=== PATIENT | female | born 1950 | race Caucasian/White ===

== ENCOUNTER 2021-08-15 08:14 | Observation (INO) ==
[2021-08-15] MEDS ORDERED: ADENOSINE IV SOLN 3 MG/ML 2 ML VIAL IV ONE (08:28)
[2021-08-15] MEDS ORDERED: ADENOSINE IV SOLN 3 MG/ML 2 ML VIAL IV STA (08:30)
[2021-08-15] MEDS ORDERED: SODIUM CHLORIDE 0.9% 1000ML 1,000 ML IV ONE ×2 (08:30→08:47)
--- NOTE | 2021-08-15 08:34 | Emergency Department Note ---
Impression & Plan SVT (supraventricular tachycardia), Palpitations, Cat bite of left lower leg, Ventricular tachycardia, Acute hypotension ED Provider Note NAME: MARSHA PERRY AGE: 70 SEX: F : 1950 ARRIVES VIA: Walk-In INFORMANT: Patient ED PROVIDER(S): Gurpreet Clayton DO CHIEF COMPLAINT: palpitations HPI: Patient is a 70-year-old female who presents the ER for palpitations. Patient notes that symptoms started after she worked out. She works out every morning for about half hour on the treadmill with weights. After she finished up the treadmill she was feeling fine like she normally does. She went upstairs after going down and felt her heart start racing. Since then she is felt a little lightheaded and has felt her heart racing. She denies any chest pain or shortness of breath. No belly pain nausea vomiting or diarrhea. No dysuria urgency or frequency. No other exacerbating or remitting factors. He states she has never had this before. Patient denies diabetes, hypertension, hyperlipidemia, CAD, history of sudden at a young age, and smoking. Patie nt denies swelling of calves, recent trips, history of immobilization or recent surgery, prior history of DVT, hemoptysis, and history of malignancy. ROS: See above HPI for pertinent positives & negatives. A total of 10 systems reviewed and were otherwise negative. PAST MEDICAL HISTORY:See Below PAST SURGICAL HISTORY:See Below FAMILY HISTORY:See Below SOCIAL HISTORY:See Below HOME MEDICATIONS:See Below ALLERGIES:See Below VITALS:See Below PHYSICAL EXAMINATION: GENERAL: Sitting up in bed, alert, well appearing, well nourished, no distress, non-toxic EYE EXAM: normal conjunctiva. PERRL and EOM's grossly intact. OROPHARYNX: no exudate, no erythema, lips, buccal mucosa, and tongue normal and mucous membranes are moist NECK: supple, no nuchal rigidity, no adenopathy, non-tender LUNGS: Clear to auscultation. Normal chest wall mechanics HEART: no murmurs, S1 normal and S2 normal ABDOMEN: abdomen soft, non-tender, normo-active bowel sounds, no masses, no rebound or guarding. UPPER EXTREMITIES: upper extremities are grossly normal. LOWER EXTREMITIES: No pitting edema. Calves are equal bilateral NEURO EXAM: Normal sensorium, cranial nerves II-XII grossly intact, normal speech, no gross weakness of arms, no gross weakness of legs. MEDICAL DECISION MAKING: Patient is a 70-year-old female who presents ER for above-stated complaint. IV was established blood was obtained. Labs show no significant leukocytosis or anemia. D-dimer was negative. BMP with creatinine at 1.3. LFTs bilirubin was unremarkable. Troponin was negative. TSH and lipase were unremarkable. Covid was negative. She was initially hypotensive in the 80s and was given 6 of adenosine followed by 12 of adenosine. With the 12 of adenosine she broke into a sinus rhythm and had 6 beats of VT just prior to converting into the sinus rhythm. She was in a sinus rhythm for about 30 seconds and then reconverted back into an SVT. At this point we continued with IV fluids to support her blood pressure as it was still in the 80s. We were waiting for this to come back up into the low 100s prior to giving Lopressor and then retrying adenosine. She converted on her own shortly thereafter. She was given 2 L of IV fluids. She still remained in the 80s for over an hour and a half. She eventually came up into the low 100s. She feels completely back to normal but with the hypotens ion following conversion did elect to monitor her over night. Discussed with hospitalist for further evaluation. Triage Nursing notes reviewed. Limited review of prior medical records performed Vital Signs: reviewed and remarkable for tachy Differential diagnosis: Differential diagnoses includes but is not limited to pneumonia, bronchitis, COPD/Asthma exacerbation, pneumothorax, pulmonary embolism, congestive heart failure, acute coronary syndrome ER treatment provided: See below Diagnostics interpreted by me: ECG: SVT rate of 176 Normal axis No PVCs Nonspecific ST wave changes be through V6 as well as the inferior leads Septal Q waves EKG #2 Sinus rhythm rate 81 Normal axis No PVCs QTC 453 T wave inversion in lead V2 Cardiac Monitoring: An order was placed for continuous cardiac monitoring. The monitor shows a rate of 173 with SVT rhythm. Laboratory studies: As stated above and show below. Imaging studies: Portable AP upright 1 view of the chest was unremarkable Consultation(s): Discussed with Sachi from [facility] service Procedures: none Critical Care: I have personally spent 32 minutes of critical care time in the direct management of this patient. This includes bedside care, interpretation of diagnostic studies, and testing, discussion with consultants, patient, and family members, and other required patient management activities. This 32 minutes is in excess of all separately billable procedures. Past Med/Surg History Medical History (Updated 08/15/21 @ 15:08 by Gurpreet Clayton DO) CKD (chronic kidney disease), stage III Family History (Updated 08/15/21 @ 11:37 by Renetta Aguilar PA-C) Father Heart disease Myocardial infarction Mother Heart disease Myocardial infarction Brother Heart disease Myocardial infarction Social History Smoking Status: Never smoker Second Hand Exposure: No; Do You Dip or Chew Tobacco: No; Hx Alcohol Use: No Hx Substance Use: No Preferred Language: Egyptian Communication Ability: Effective Cardiology Technologist Required: No Beliefs That Will Affect Care: None Current Living Situation: Spouse Other Information That Helps Us Care for You: No Feels Safe at Home: Yes Assistive Devices: None Allergies Allergies Allergy/AdvReac Type Severity Reaction Status Date / Time No Known Allergies Allergy Unverified 08/15/21 09:34 Home Meds Home Medications Medication Instructions Recorded Confirmed cyclosporine 0.05 % eye drops in a 1 drp OPB BID 08/15/21 08/15/21 dropperette (Restasis) Results & Data (ED) Vital Signs Vital Signs - 24 hr 08/15/21 08:16 08/15/21 08:27 08/15/21 08:31 Temperature 36.5 C Temperature Source Temporal Artery Scan Pulse Rate 190 H 176 H 172 H Pulse Rate [Apical] 176 H Pulse Rate from SpO2 Sensor Respiratory Rate 20 20 20 Respiratory Effort / Characteristics Non-Labored Non-Labored Spontaneous Respiratory Depth Normal Normal Respiratory Pattern Regular Blood Pressure Blood Pressure Mean Pulse Oximetry 98 95 Oxygen Delivery Method Room Air Room Air Sepsis Recent Fever Within 48 Hours No Sepsis New/Unexplained Change in Mental Status N/A Sepsis Action Taken by Nursing No Action Required 08/15/21 08:38 08/15/21 08:39 08/15/21 08:42 Temperature Temperature Source Pulse Rate 166 H 161 H 159 H Pulse Rate [Apical] Pulse Rate from SpO2 Sensor 166 H 162 H Respiratory Rate 14 19 20 Respiratory Effort / Characteristics Respiratory Depth Respiratory Pattern Blood Pressure 81/65 L 87/61 L 75/48 L Blood Pressure Mean 70 69 57 Pulse Oximetry 99 99 Oxygen Delivery Method Sepsis Recent Fever Within 48 Hours Sepsis New/Unexplained Change in Mental Status Sepsis Action Taken by Nursing 08/15/21 08:43 08/15/21 08:45 08/15/21 08:55 Temperature Temperature Source Pulse Rate 153 H 81 83 Pulse Rate [Apical] Pulse Rate from SpO2 Sensor 155 H 94 H 83 Respiratory Rate 16 20 19 Respiratory Effort / Characteristics Respiratory Depth Respiratory Pattern Blood Pressure 93/63 L 83/55 L 92/70 L Blood Pressure Mean 73 64 77 Pulse Oximetry 97 99 100 Oxygen Delivery Method Sepsis Recent Fever Within 48 Hours Sepsis New/Unexplained Change in Mental Status Sepsis Action Taken by Nursing 08/15/21 09:00 08/15/21 09:15 08/15/21 09:30 Temperature Temperature Source Pulse Rate 89 88 86 Pulse Rate [Apical] Pulse Rate from SpO2 Sensor 89 89 86 Respiratory Rate 20 21 18 Respiratory Effort / Characteristics Respiratory Depth Respiratory Pattern Blood Pressure 96/65 L 90/71 L 100/73 Blood Pressure Mean 75 77 82 Pulse Oximetry 100 99 99 Oxygen Delivery Method Sepsis Recent Fever Within 48 Hours Sepsis New/Unexplained Change in Mental Status Sepsis Action Taken by Nursing Laboratory Data Result diagrams: 08/15/21 08:31 08/15/21 08:31 Lab Results 08/15/21 08/15/21 08/15/21 Range/Units 08:31 08:31 08:31 WBC 7.69 (4.8-10.8) K/uL RBC 4.92 (4.2-5.4) M/uL Hgb 14.6 (12.0-16.0) g/dL Hct 45.0 (37-47) % MCV 91.5 (80-100) fL MCH 29.7 (25-34) pg MCHC 32.4 (32-36) g/dL RDW Std Deviation 43.5 (36.4-46.3) fL RDW Coeff of Gilson 13.1 (11.5-14.5) % Plt Count 263 (130-400) K/uL MPV 10.4 (7.4-10.4) fL Immature Gran % (Auto) 0.1 % Neut % (Auto) 64.3 % Lymph % (Auto) 25.6 % [place] % (Auto) 7.2 % Eos % (Auto) 2.1 % Baso % (Auto) 0.7 % Neut # (Auto) 4.95 (1.4-6.5) K/uL Lymph # (Auto) 1.97 (1.2-3.4) K/uL [place] # (Auto) 0.55 (0.11-0.59) K/uL Eos # (Auto) 0.16 (0-0.5) K/uL Baso # (Auto) 0.05 (0-0.2) K/uL Immature Gran # (Auto) 0.01 (0.00-0.02) K/uL D-Dimer 300 (0-500) ug/L FEU Sodium 139 (136-145) mmol/L Potassium 4.0 (3.5-5.1) mmol/L Chloride 105 (98-107) mmol/L Carbon Dioxide 24 (21-32) mmol/L Anion Gap 10 (3-11) BUN 18 (6-23) mg/dl Creatinine 1.30 H (0.6-1.2) mg/dl Est Cr Clr Drug Dosing 31.8 ml/min Est GFR ( Amer) 48.1 ml/min Est GFR (Non-Af Amer) 41.5 ml/min BUN/Creatinine Ratio 13.8 (10-20) Glucose 171 H (70-99(Fasting)) mg/dl Calcium 9.1 (8.5-10.1) mg/dl Magnesium (1.7-2.4) mg/dl Total Bilirubin 0.6 (0.2-1.0) mg/dl AST 29 (13-39) U/L ALT 20 (7-52) U/L Alkaline Phosphatase 74 (34-104) U/L Troponin I < 0.03 (0-0.04) ng/ml Total Protein 7.1 (6.0-8.3) gm/dl Albumin 4.2 (3.4-5.0) gm/dl Globulin 2.9 (2.5-4.0) gm/dl Albumin/Globulin Ratio 1.4 (0.9-2) Lipase 24 (11-82) U/L TSH (0.300-4.500) uIu/ml 08/15/21 08/15/21 Range/Units 09:25 09:25 WBC (4.8-10.8) K/uL RBC (4.2-5.4) M/uL Hgb (12.0-16.0) g/dL Hct (37-47) % MCV (80-100) fL MCH (25-34) pg MCHC (32-36) g/dL RDW Std Deviation (36.4-46.3) fL RDW Coeff of Gilson (11.5-14.5) % Plt Count (130-400) K/uL MPV (7.4-10.4) fL Immature Gran % (Auto) % Neut % (Auto) % Lymph % (Auto) % [place] % (Auto) % Eos % (Auto) % Baso % (Auto) % Neut # (Auto) (1.4-6.5) K/uL Lymph # (Auto) (1.2-3.4) K/uL [place] # (Auto) (0.11-0.59) K/uL Eos # (Auto) (0-0.5) K/uL Baso # (Auto) (0-0.2) K/uL Immature Gran # (Auto) (0.00-0.02) K/uL D-Dimer (0-500) ug/L FEU Sodium (136-145) mmol/L Potassium (3.5-5.1) mmol/L Chloride (98-107) mmol/L Carbon Dioxide (21-32) mmol/L Anion Gap (3-11) BUN (6-23) mg/dl Creatinine (0.6-1.2) mg/dl Est Cr Clr Drug Dosing ml/min Est GFR ( Amer) ml/min Est GFR (Non-Af Amer) ml/min BUN/Creatinine Ratio (10-20) Glucose (70-99(Fasting)) mg/dl Calcium (8.5-10.1) mg/dl Magnesium 1.7 (1.7-2.4) mg/dl Total Bilirubin (0.2-1.0) mg/dl AST (13-39) U/L ALT (7-52) U/L Alkaline Phosphatase (34-104) U/L Troponin I (0-0.04) ng/ml Total Protein (6.0-8.3) gm/dl Albumin (3.4-5.0) gm/dl Globulin (2.5-4.0) gm/dl Albumin/Globulin Ratio (0.9-2) Lipase (11-82) U/L TSH 1.936 (0.300-4.500) uIu/ml Administered Medications Discontinued Medications Adenosine (Adenosine Iv Soln 3 Mg/Ml 2 Ml Vial) Confirm Administered Dose 18 mg IV .STK-MED ONE Stop: 08/15/21 08:29 Last Admin: 08/15/21 08:45 Dose: 12 mg Documented by: [id number] Adenosine (Adenosine Iv Soln 3 Mg/Ml 2 Ml Vial) 6 mg IV NOW STA Stop: 08/15/21 08:31 Last Admin: 08/15/21 08:37 Dose: 6 mg Documented by: [id number] Amoxicillin/Clavulanate Potassium (Amoxicillin/Clavulanate 875 Mg Tab) 1 tab PO NOW ONE Stop: 08/15/21 10:37 Last Admin: 08/15/21 11:12 Dose: 1 tab Documented by: [id number] Sodium Chloride (Nss 1000ml) 1,000 mls @ 999 mls/hr IV .Q1H1M ONE Stop: 08/15/21 09:30 Last Infusion: 08/15/21 09:44 Dose: 0 mls/hr Documented by: [id number] Admin: 08/15/21 09:06 Dose: 999 mls/hr Documented by: [id number] Sodium Chloride (Nss 1000ml) 1,000 mls @ 999 mls/hr IV .Q1H1M ONE Stop: 08/15/21 09:47 Last Infusion: 08/15/21 09:44 Dose: 0 mls/hr Documented by: [id number] Admin: 08/15/21 09:06 Dose: 999 mls/hr Documented by: [id number] Metoprolol Tartrate (Metoprolol Tartrate 1 Mg/Ml Vial) 5 mg IV NOW STA; Protocol Stop: 08/15/21 08:48 Last Admin: 08/15/21 09:43 Dose: Not Given Documented by: [id number] Imaging Data Radiologist's Impression: Chest X-Ray 08/15/21 08:22 XR chest 1V portable CLINICAL HISTORY: Atypical chest pain TECHNIQUE: Single frontal radiograph of the chest was obtained. Comparison: None available at the time of this dictation. FINDINGS: No lines and tubes are seen. The cardiomediastinal silhouette is normal. The lungs are clear. No evidence of pleural effusion or pneumothorax. IMPRESSION: No acute chest disease. ACT 112: Negative or not required by law. Electronically signed by: Timoteo Mark M.D. 08/15/2021 8:56 AM Discharge Plan Visit Data Chief Complaint: Tachycardia Stated Complaint: HIGH HEART RATE ED Provider: Gurpreet Clayton Discharge Problem: SVT (supraventricular tachycardia), Palpitations, Cat bite of left lower leg, Ventricular tachycardia, Acute hypotension Patient Disposition: Admitted As Inpatient Discharge Instructions Interventions: ED Discharge Assessment Last Done: 08/15/21 13:58
[2021-08-15 08:38] LABS: Basophils # (auto) 0.05 K/uL (0-0.2); Basophils % (auto) 0.7 %; Eosinophils # (auto) 0.16 K/uL (0-0.5); Eosinophils % (auto) 2.1 %; Hemoglobin 14.6 g/dL (12.0-16.0); Immature Granulocytes # (auto) 0.01 K/uL (0.00-0.02); Immature Granulocytes % (auto) 0.1 %; Lymphocytes # (auto) 1.97 K/uL (1.2-3.4); Lymphocytes % (auto) 25.6 %; Mean Corpuscular Hemoglobin 29.7 pg (25-34); Mean Corpuscular Hgb Conc 32.4 g/dL (32-36); Mean Corpuscular Volume 91.5 fL (80-100); Mean Platelet Volume 10.4 fL (7.4-10.4); Monocytes # (auto) 0.55 K/uL (0.11-0.59); Monocytes % (auto) 7.2 %; Neutrophils # (auto) 4.95 K/uL (1.4-6.5); Neutrophils % (auto) 64.3 %; Platelet Count 263 K/uL (130-400); RDW Coefficient of Variation 13.1 % (11.5-14.5); RDW Standard Deviation 43.5 fL (36.4-46.3); Red Blood Count 4.92 M/uL (4.2-5.4); White Blood Count 7.69 K/uL (4.8-10.8)
[2021-08-15] MEDS ORDERED: METOPROLOL TARTRATE 1 MG/ML VIAL IV STA (08:47)
--- NOTE | 2021-08-15 08:58 | XRay Report ---
XR chest 1V portable CLINICAL HISTORY: Atypical chest pain TECHNIQUE: Single frontal radiograph of the chest was obtained. Comparison: None available at the time of this dictation. FINDINGS: No lines and tubes are seen. The cardiomediastinal silhouette is normal. The lungs are clear. No evid ence of pleural effusion or pneumothorax. IMPRESSION: No acute chest disease. ACT 112: Negative or not required by law. Electronically signed by: Timoteo Mark M.D. 08/15/2021 8:56 AM
[2021-08-15 09:04] LABS: Troponin I < 0.03 ng/ml (0-0.04)
[2021-08-15 09:08] LABS: Alanine Aminotransferase 20 U/L (7-52); Albumin Globulin Ratio 1.4 (0.9-2); Albumin Level 4.2 gm/dl (3.4-5.0); Alkaline Phosphatase 74 U/L (34-104); Anion Gap 10 (3-11); Aspartate Aminotransferase 29 U/L (13-39); BUN Creatinine Ratio 13.8 (10-20); Bilirubin,Total 0.6 mg/dl (0.2-1.0); Blood Urea Nitrogen 18 mg/dl (6-23); Calcium 9.1 mg/dl (8.5-10.1); Carbon Dioxide 24 mmol/L (21-32); Chloride 105 mmol/L (98-107); Creatinine Clr Calc Pharmacy 31.8 ml/min; Est GFR (African American) 48.1 ml/min; Est GFR (Non-African American) 41.5 ml/min; Globulin 2.9 gm/dl (2.5-4.0); Glucose 171 mg/dl (70-99(Fasting)); Lipase 24 U/L (11-82); Sodium 139 mmol/L (136-145); Total Protein 7.1 gm/dl (6.0-8.3)
[2021-08-15 09:59] LABS: D Dimer 300 ug/L FEU (0-500)
[2021-08-15] MEDS ORDERED: AMOXICILLIN/CLAVULANATE 875 MG TAB PO ONE (10:36)
--- NOTE | 2021-08-15 11:03 | History & Physical Report ---
Date of Service August 15, 2021 Assessment & Plan (1) SVT (supraventricular tachycardia): (2) Palpitations: (3) Hypotension: Plan: - Admit to PCU - Pt is s/p adenosine 6 mg and 18 mg IV push, this did not convert the patient into NSR however converted spontaneously shortly thereafter, she has been hypotensive with a BP of over 70s at best here in the so was administered NSS x 2L - Consult cardiology - 2D echo ordered - monitor Hypotension, encourage oral hydration - Pt is not on any medications at baseline - Has never had heart palpitations or arrhythmia like this in the past - Initial troponin was negative, trend x 2 more sets (4) CKD (chronic kidney disease), stage III: Plan: - hx of such, stable. Cr. 1.3 on arrival (5) Cat bite of left lower leg: Plan: - occurred yesterday by a stray, she denies any known history of rabies of the animal. There is bite wounds over the lateral left lower leg, no surrounding erythema or appearance of cellulitis. The wound is not purulent. Patient has been putting Neosporin on it. - no wbc, afebrile -monitor and treat with Augmentin for now. DVT ppx: - teds, scds, ambulatory CODE: Full code Dispo: From home, likely to remain in the hospital x 1-2 days History of Present Illness Chief Complaint: Tachycardia Primary Care Provider: Courtney Paz DO This is a 70 yo F without significant PMHx other than CKD stage III, no surgical history, and not on any medications, who presents with acute onset of tachycardia after she completed a workout on the treadmill. She typically walks daily on the treadmill going at least 1.25 miles and holding weights while on a slight incline. 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 Her is present with her bedside. She notes that after getting off the treadmill she could not even count how fast her pulse was, as she was on the phone with a nurse from [facility]. They suggested that she come to the ER because she had associated lightheadedness, dizziness whenever she attempted to stand up and do anything. She denies caffine consumption other than 1 cup per day but did not have any yet today. Pt does not normally eat breakfast but does drink adequate amounts of water. Yesterday she sustained a cat bite on the left lower leg by a stray cat that she was feeding outside there [place] at home. She denies any irregular-like behavior of the animal, and does not think that it currently has rabies. She also recently had a pet last February which she is still very sad about. Once here in the ER she was given 2 doses of adenosine 6 mg then 18, however ER physician reports that it did not convert at that point. Shortly after this time her heart rate converted spontaneously back into NSR. She does not take any medications at baseline. Her is with her at bedside and supports the history. Allergies Allergy/AdvReac Type Severity Reaction Status Date / Time No Known Allergies Allergy Unverified 08/15/21 09:34 Home Medications Medication Instructions Recorded Confirmed Type cyclosporine 0.05 % eye drops in a 1 drp OPB BID 08/15/21 08/15/21 History dropperette (Restasis) Past Med/Surg History Medical History (Updated 08/15/21 @ 11:36 by Renetta Aguilar PA-C) CKD (chronic kidney disease), stage III Family History (Updated 08/15/21 @ 11:37 by Renetta Aguilar PA-C) Father Heart disease Myocardial infarction Mother Heart disease Myocardial infarction Brother Heart disease Myocardial infarction Social History Smoking Status: Never smoker Preferred Language: Congolese Review of Systems Review of Systems: Constitutional: No fever, sweats or chills Eyes: No diplopia, no worsening or blurred vision ENT: normal hearing, no trouble swallowing Respiratory: No cough, sputum, dyspnea at rest or on exertion Cardiovascular:As per HPI, No chest pain, tightness or palpitations Abdomen: No pain, nausea, vomiting, diarrhea or constipation Musculoskeletal: No joint pain, calf pain, swelling Neurologic: No weakness, numbness/tingling, or balance problems Psychiatric: No anxiety or depression Skin: No rash or itch Physical Exam Physical Exam: General: awake, alert, no apparent distress, physically fit Head: Normocephalic, atraumatic ENT: PERRL, EOMI, no pharyngeal exudate, mucous membranes moist Chest: Clear to auscultation, on room air, no adventitious breath sounds Cardiac: Regular rate and rhythm, no murmur, no JVD, normal peripheral pulses, good capillary refill Abdominal: NABS x 4 quadrants, soft, nondistended, nontender to palpation, no rebound or guarding Extremities: Lateral LLE with bite wounds, blackened area without surrounding erythema, no purulent material draining from the area. Otherwise normal inspe ction, no peripheral edema or erythema, calfs nontender to palpation Psych: Normal mood and affect Neuro: AAO x 3, strength intact bilaterally and rated 5/5, no motor deficits, speech is clear, no peripheral sensory deficits Results & Data Results & Data ([facility]) Vital Signs (Past 12 Hours) Vital Signs Temp Pulse Pulse Resp BP Pulse Ox 08/15/21 09:30 86 18 100/73 99 08/15/21 09:15 88 21 90/71 L 99 08/15/21 09:00 89 20 96/65 L 100 08/15/21 08:55 83 19 92/70 L 100 08/15/21 08:45 81 20 83/55 L 99 08/15/21 08:43 153 H 16 93/63 L 97 08/15/21 08:42 159 H 20 75/48 L 08/15/21 08:39 161 H 19 87/61 L 99 08/15/21 08:38 166 H 14 81/65 L 99 08/15/21 08:31 172 H 20 08/15/21 08:27 176 H 176 H 20 95 08/15/21 08:16 36.5 C 190 H 20 98 Laboratory Results 08/15/21 08/15/21 08/15/21 09:25 08:31 08:31 WBC RBC Hgb Hct MCV MCH MCHC RDW Std Deviation RDW Coeff of Gilson Plt Count MPV Immature Gran % (Auto) Neut % (Auto) Lymph % (Auto) Hale % (Auto) Eos % (Auto) Baso % (Auto) Neut # (Auto) Lymph # (Auto) Hale # (Auto) Eos # (Auto) Baso # (Auto) Immature Gran # (Auto) D-Dimer 300 Sodium 139 Potassium 4.0 Chloride 105 Carbon Dioxide 24 Anion Gap 10 BUN 18 Creatinine 1.30 H Est Cr Clr Drug Dosing 31.8 Est GFR ( Amer) 48.1 Est GFR (Non-Af Amer) 41.5 BUN/Creatinine Ratio 13.8 Glucose 171 H Calcium 9.1 Magnesium 1.7 Total Bilirubin 0.6 AST 29 ALT 20 Alkaline Phosphatase 74 Troponin I < 0.03 Total Protein 7.1 Albumin 4.2 Globulin 2.9 Albumin/Globulin Ratio 1.4 Lipase 24 08/15/21 08:31 WBC 7.69 RBC 4.92 Hgb 14.6 Hct 45.0 MCV 91.5 MCH 29.7 MCHC 32.4 RDW Std Deviation 43.5 RDW Coeff of Gilson 13.1 Plt Count 263 MPV 10.4 Immature Gran % (Auto) 0.1 Neut % (Auto) 64.3 Lymph % (Auto) 25.6 Hale % (Auto) 7.2 Eos % (Auto) 2.1 Baso % (Auto) 0.7 Neut # (Auto) 4.95 Lymph # (Auto) 1.97 Hale # (Auto) 0.55 Eos # (Auto) 0.16 Baso # (Auto) 0.05 Immature Gran # (Auto) 0.01 D-Dimer Sodium Potassium Chloride Carbon Dioxide Anion Gap BUN Creatinine Est Cr Clr Drug Dosing Est GFR ( Amer) Est GFR (Non-Af Amer) BUN/Creatinine Ratio Glucose Calcium Magnesium Total Bilirubin AST ALT Alkaline Phosphatase Troponin I Total Protein Albumin Globulin Albumin/Globulin Ratio Lipase Diagnostic Findings Chest X-Ray 08/15/21 08:22 XR chest 1V portable CLINICAL HISTORY: Atypical chest pain TECHNIQUE: Single frontal radiograph of the chest was obtained. Comparison: None available at the time of this dictation. FINDINGS: No lines and tubes are seen. The cardiomediastinal silhouette is normal. The lungs are clear. No evidence of pleural effusion or pneumothorax. IMPRESSION: No acute chest disease. ACT 112: Negative or not required by law. Electronically signed by: Timoteo Mark M.D. 08/15/2021 8:56 AM ECG Additional Comments: 15-AUG-2021 08:50:30 [facility]-EDSTAT ROUTINE RETRIEVAL Normal sinus rhythm Septal infarct (cited on or before 15-AUG-2021) Abnormal ECG When compared with ECG of 15-AUG-2021 08:40, (unconfirmed) Vent. rate has decreased BY 80 BPM 25mm/s10mm/[id number] 241CID: [id number] by: REFERRED SELF Unconfirmed Vent. rate 81 BPM WI interval 156 ms QRS duration 68 ms QT/QTc 390/453 ms Code Status & VTE Plan Code Status Full code Supervising Physician Co-Signing Physician Notes I saw this patient with the physician corporate legal assistant, I participated in the history, physical, review of systems, and physical exam. I reviewed the medications with the patient and the physician corporate legal assistant and helped reconcile the medications. I helped take a detailed family and social history as well. I formulated the assessment and plan personally with the physician corporate legal assistant and went over it with the patient. Physical Exam Gen-AAO x 3, NAD, Afebrile Head-NCAT, EOMI, PERRLA, Anicteric Sclera, No Posterior Pharyngeal Erythema Neck-Supple, No JVD, No Thyromegaly, No Masses, No LAD, No Bruits Lungs-Clear to Auscultation Bilaterally, No Rales, No Rhonchi, No Wheezing, No Crepitus Chest-No S4, +S1, +S2, No S3, No Murmurs, No Rubs, No Gallops, No Ectopy Abdomen-Soft, Bowel Sounds Present, Non Tender, Non Distended, No Hepatomegaly, No Splenomegaly, No Palpable Masses, No Rebound, No Rigidity, No Guarding Musculoskeletal-Full Range of Motion Bilaterally, No CVAT Extremities-No Cyanosis, No Clubbing, No Edema Nuero-Cranial Nerves II-XII grossly intact, Motor WNL, DTRs WNL, Strength WNL, Non Focal Psych-Normal Mood
[2021-08-15] MEDS ORDERED: ONDANSETRON INJ 2 MG/ML 2 ML VIAL IV PRN (15:17)
[2021-08-15] MEDS ORDERED: ACETAMINOPHEN 325 MG TAB PO PRN (15:17)
--- NOTE | 2021-08-15 15:27 | Electrocardiogram Report ---
Test Reason : Blood Pressure : / mmHG Vent. Rate : 081 BPM Atrial Rate : 081 BPM P-R Int : 156 ms QRS Dur : 068 ms QT Int : 390 ms P-R-T Axes : 021 018 039 degrees QTc Int : 453 ms Normal sinus rhythm Possible Old Septal infarct (cited on or before 15-AUG-2021) Abnormal ECG When compared with ECG of 15-AUG-2021 08:40, Vent. rate has decreased BY 80 BPM Supraventricular tachycardia no longer present Confirmed by Catracho Beaulieu ([id number]) on 08/15/2021 3:27:01 PM Referred By: REFERRED SELF Confirmed By:Catracho Beaulieu
--- NOTE | 2021-08-15 15:50 | Electrocardiogram Report ---
Test Reason : Blood Pressure : / mmHG Vent. Rate : 176 BPM Atrial Rate : 178 BPM P-R Int : 000 ms QRS Dur : 086 ms QT Int : 254 ms P-R-T Axes : 000 008 045 degrees QTc Int : 434 ms Supraventricular tachycardia Cannot rule out Old Septal infarct Abnormal ECG No previous ECGs available Confirmed by Catracho Beaulieu ([id number]) on 08/15/2021 3:49:55 PM Referred By: REFERRED SELF Confirmed By:Catracho Beaulieu
--- NOTE | 2021-08-15 15:51 | Electrocardiogram Report ---
Test Reason : Blood Pressure : / mmHG Vent. Rate : 161 BPM Atrial Rate : 208 BPM P-R Int : 000 ms QRS Dur : 084 ms QT Int : 288 ms P-R-T Axes : 000 030 051 degrees QTc Int : 471 ms Poor data quality, interpretation may be adversely affected Supraventricular tachycardia Cannot rule out Old Septal infarct Abnormal ECG When compared with ECG of 15-AUG-2021 08:27, No significant change was found Confirmed by Catracho Beaulieu ([id number]) on 08/15/2021 3:50:45 PM Referred By: REFERRED SELF Confirmed By:Catrcaho Beaulieu
[2021-08-15] MEDS: AMOXICILLIN/CLAVULANATE 875 MG TAB PO SCH (17:35)
[2021-08-16 06:31] LABS: Hemoglobin 13.2 g/dL (12.0-16.0); Mean Corpuscular Hemoglobin 30.1 pg (25-34); Mean Corpuscular Volume 91.3 fL (80-100); Mean Platelet Volume 10.2 fL (7.4-10.4); Platelet Count 209 K/uL (130-400); RDW Coefficient of Variation 13.1 % (11.5-14.5); RDW Standard Deviation 44.1 fL (36.4-46.3); Red Blood Count 4.38 M/uL (4.2-5.4); White Blood Count 4.96 K/uL (4.8-10.8)
[2021-08-16 06:49] LABS: Albumin Globulin Ratio 1.7 (0.9-2); Albumin Level 3.7 gm/dl (3.4-5.0); BUN Creatinine Ratio 20.8 (10-20); Bilirubin,Total 0.6 mg/dl (0.2-1.0); Calcium 9.3 mg/dl (8.5-10.1); Est GFR (African American) 65.3 ml/min; Est GFR (Non-African American) 56.4 ml/min; Globulin 2.2 gm/dl (2.5-4.0); Magnesium 1.8 mg/dl (1.7-2.4); Phosphorus 2.9 mg/dl (2.5-4.9); Potassium 3.9 mmol/L (3.5-5.1); Total Protein 5.9 gm/dl (6.0-8.3)
[2021-08-16] MEDS: AMOXICILLIN/CLAVULANATE 875 MG TAB PO SCH (08:01)
--- NOTE | 2021-08-16 10:15 | Cardiology Consultation ---
Date of Consultation August 16, 2021 Assessment & Plan (1) SVT (supraventricular tachycardia): (2) Palpitations: (3) Hypomagnesemia: (4) Hypotension: (5) Cat bite of left lower leg: (6) Elevated troponin: Patient admitted with episode of tachypalpitations. EKG consistent with SVT vs atrial flutter 2:1 conduction. She converted after 2 doses of adenosine - 6 mg and then 18 mg dose. After conversion she became hypotensive, but improved with IV fluids. Troponin minimally elevated likely due to sustained tachyarrhythmia. Normal LV function and no wall motion abnormalities noted on echo. No chest pain to suggest angina. She does have strong family history of premature CAD. Recommend hydration, supplement magnesium. Recommend initiation of ASA 81 mg daily Outpatient stress echo to be arranged given minimally elevated troponin and family history of premature CAD. EP referral also to be arranged as outpatient. Will avoid beta blockers for now given mildly low resting HR in the 50's currently on telemetry. Case discussed with Dr. Carballo. Likely stable for discharge today. Supervising Physician Co-Signing Physician Notes I have discussed the case with Ms. Santos and reviewed the medical record. Unfortunately the patient was discharged and left the hospital before I could see her however, I agree with the plan as outlined above. She will have an outpatient stress test and be followed by the EP service. History of Present Illness Reason for Consultation: SVT vs Atrial flutter Requesting Physician: Ms. Lauren PA-C Attending Physician: Dr. Carballo History of Present Illness Patient is a 70-year-old female who was admitted to [facility] with complaints of sustained palpitations at home lasting approximately 30 minutes. Upon arrival she was found to have tachycardia consistent with SVT vs atrial flutter at a rate of 176 bpm. She was treated with Adenosine 6 mg dose without success. Repeat adenosine dose of 18 mg initially not effective, but apparently patient converted to NSR several minutes later. She then developed symptomatic hypotension, treated with Normal Saline. Troponin minimally elevated at 0.16 and 0.14. She denied chest pain throughout episode of palpitations or tachypalpitations. Her primary complaints were dizziness and SOB. She was found to have mildly elevated creatinine, likely volume deletion. She had been exercising at home on the treadmill, prior to this occurring. She exercises regularly and had no symptoms during exercise to suggest a problem/concern. She denies recent chest pain/dyspnea or palpitations. She is very active. She denies history of cardiovascular issues. She had an echo in 2019 which demonstrated normal LV function without significant findings. She denies history of arrhythmias, valvular disease, CHF, CAD. She takes no medications/supplements on a regular basis. She does report family history of premature CAD with her brother passing away age 58 of [place] and father passing away in his 60's of [place]. She also reports they smoked and "did not take care of themselves". Currently at time of consult, patient resting in bed comfortably. No recurrent palpitations or tachypalpitations. No arrhythmias on telemetry. No chest pain or dyspnea. Wishes to go home. Allergies Allergy/AdvReac Type Severity Reaction Status Date / Time No Known Allergies Allergy Unverified 08/15/21 09:34 Home Medications Medication Instructions Recorded Confirmed Type cyclosporine 0.05 % eye drops in a 1 drp OPB BID 08/15/21 08/15/21 History dropperette (Restasis) amoxicillin 875 mg-potassium 1 tab PO BID 7 Days #14 tab 08/16/21 Rx clavulanate 125 mg tablet aspirin 81 mg tablet,delayed 81 mg PO QAM 30 Days #30 tab 08/16/21 Rx release magnesium oxide 400 mg (241.3 mg 400 mg PO QAM #30 tab 08/16/21 Rx magnesium) tablet Patient History Medical History (Updated 08/16/21 @ 11:37 by Judie Santos PA-C) CKD (chronic kidney disease), stage III Family History (Updated 08/15/21 @ 11:37 by Renetta Aguilar PA-C) Father Heart disease Myocardial infarction Mother Heart disease Myocardial infarction Brother Heart disease Myocardial infarction Social History Smoking Status: Never smoker Second Hand Exposure: No; Do You Dip or Chew Tobacco: No; Hx Alcohol Use: No Hx Substance Use: No Preferred Language: Kazakh Communication Ability: Effective Microbiology Lab Analyst Required: No Beliefs That Will Affect Care: None marital status: Current Living Situation: Spouse How many Children do You have: 1 Other Information That Helps Us Care for You: No Feels Safe at Home: Yes Assistive Devices: Glasses Review of Systems Review of Systems: All systems reviewed & are unremarkable except as noted in HPI & below Physical Exam Constitutional: WD/WN, vitals as above well developed; no acute distress Eyes: PERRL, conjunctivae normal, anicteric sclerae Neck: trachea midline, no thyromegaly Respiratory: normal respiratory effort, lungs clear to auscultation Cardiovascular: Rate/Rhythm: regular rate and regular rhythm Heart Sounds: normal S1 and normal S2; no murmur Vessels: no JVD Extremities: no edema Gastrointestinal (Abdomen): normal bowel sounds, soft, nontender, no hepatosplenomegaly Skin: no rashes Trauma: + evidence of skin trauma (cat/bite puncture wounds - left pretibial region. no signifiant erythema. ) Neurologic: PERRL, EOMI, accommodation nl, no face palsy, no dysarthria Psychiatric: A+Ox3, euthymic affect Results & Data ([facility]) Vital Signs (Past 12 Hours) Vital Signs Temp Pulse Pulse Resp BP Pulse Ox 08/16/21 08:00 36.5 C 76 20 122/63 95 08/16/21 03:11 36.5 C 59 L 18 100/65 97 08/15/21 23:23 36.6 C 57 L 18 103/67 97 08/15/21 23:21 63 Laboratory Results 08/16/21 08/16/21 08/15/21 Range/Units 05:52 05:52 22:31 WBC 4.96 (4.8-10.8) K/uL RBC 4.38 (4.2-5.4) M/uL Hgb 13.2 (12.0-16.0) g/dL Hct 40.0 (37-47) % MCV 91.3 (80-100) fL MCH 30.1 (25-34) pg MCHC 33.0 (32-36) g/dL RDW Std Deviation 44.1 (36.4-46.3) fL RDW Coeff of Gilson 13.1 (11.5-14.5) % Plt Count 209 (130-400) K/uL MPV 10.2 (7.4-10.4) fL Sodium 139 (136-145) mmol/L Potassium 3.9 (3.5-5.1) mmol/L Chloride 108 H (98-107) mmol/L Carbon Dioxide 26 (21-32) mmol/L Anion Gap 5 (3-11) BUN 21 (6-23) mg/dl Creatinine 1.01 (0.6-1.2) mg/dl Est Cr Clr Drug Dosing 41.0 ml/min Est GFR ( Amer) 65.3 ml/min Est GFR (Non-Af Amer) 56.4 ml/min BUN/Creatinine Ratio 20.8 H (10-20) Glucose 81 (70-99(Fasting)) mg/dl Calcium 9.3 (8.5-10.1) mg/dl Phosphorus 2.9 (2.5-4.9) mg/dl Magnesium 1.8 (1.7-2.4) mg/dl Total Bilirubin 0.6 (0.2-1.0) mg/dl AST 21 (13-39) U/L ALT 15 (7-52) U/L Alkaline Phosphatase 62 (34-104) U/L Troponin I 0.14 H* (0-0.04) ng/ml Total Protein 5.9 L (6.0-8.3) gm/dl Albumin 3.7 (3.4-5.0) gm/dl Globulin 2.2 L (2.5-4.0) gm/dl Albumin/Globulin Ratio 1.7 (0.9-2) TSH (0.300-4.500) uIu/ml SARS-CoV-2, RNA, NAAT (NEGATIVE) 08/15/21 08/15/21 08/15/21 Range/Units 14:33 11:49 09:25 WBC (4.8-10.8) K/uL RBC (4.2-5.4) M/uL Hgb (12.0-16.0) g/dL Hct (37-47) % MCV (80-100) fL MCH (25-34) pg MCHC (32-36) g/dL RDW Std Deviation (36.4-46.3) fL RDW Coeff of Gilson (11.5-14.5) % Plt Count (130-400) K/uL MPV (7.4-10.4) fL Sodium (136-145) mmol/L Potassium (3.5-5.1) mmol/L Chloride (98-107) mmol/L Carbon Dioxide (21-32) mmol/L Anion Gap (3-11) BUN (6-23) mg/dl Creatinine (0.6-1.2) mg/dl Est Cr Clr Drug Dosing ml/min Est GFR ( Amer) ml/min Est GFR (Non-Af Amer) ml/min BUN/Creatinine Ratio (10-20) Glucose (70-99(Fasting)) mg/dl Calcium (8.5-10.1) mg/dl Phosphorus (2.5-4.9) mg/dl Magnesium (1.7-2.4) mg/dl Total Bilirubin (0.2-1.0) mg/dl AST (13-39) U/L ALT (7-52) U/L Alkaline Phosphatase (34-104) U/L Troponin I 0.16 H* (0-0.04) ng/ml Total Protein (6.0-8.3) gm/dl Albumin (3.4-5.0) gm/dl Globulin (2.5-4.0) gm/dl Albumin/Globulin Ratio (0.9-2) TSH 1.936 (0.300-4.500) uIu/ml SARS-CoV-2, RNA, NAAT NEGATIVE (NEGATIVE) Diagnostic Findings Telemetry reviewed: Sinus bradycardia, NSR ranging 55-65 bpm since admission. occ PAC, PVC. No arrhythmias EKG on arrival: Supraventricular tachycardia vs atrial flutter at 176 bpm Cannot rule out Old Septal infarct Repeat EKG after 1st dose of adenosine: Supraventricular tachycardia vs atrial flutter at 161 bpm Cannot rule out Old Septal infarct Abnormal ECG When compared with ECG of 15-AUG-2021 08:27, No significant change was found Repeat EKG after 2nd dose of adenosine: Normal sinus rhythm Possible Old Septal infarct (cited on or before 15-AUG-2021) Vent. rate has decreased BY 80 BPM Supraventricular tachycardia no longer present Echo report reviewed dated 08/15/21: Normal LV chamber size and wall thickness. Hyperdynamic LV systolic function ejection fraction greater than 70%. No segmental left ventricular wall motion abnormalities are noted. Grade 1 diastolic dysfunction. Aortic valve sclerosis mild without significant aortic valvular stenosis. Mild AI. Mild MR. Chest xray report reviewed on admission: IMPRESSION: No acute chest disease. prior EKG from outpatient records reviewed - Feb 2020: Normal sinus rhythm Septal infarct , age undetermined Abnormal ECG No previous ECGs available Outpatient echo reviewed from Feb 2020: Interpretation Summary The primary indication after review was deemed appropriate and the examination was performed. Normal LV chamber size and wall thickness. Normal LV systolic function without regional wall motion abnormality. Calculated LV ejection Fraction = 64% (three dimensional volumes). Normal diastolic function. Mild aortic regurgitation. Mild mitral regurgitation. Mild tricuspid regurgitation. The interatrial septum is intact without interatrial shunt, atrial septal defect, or patent foramen ovale. There is no right to left interatrial shunt with Valsalva by saline contrast injection. Medications Administered Current Inpatient Medications Acetaminophen (Acetaminophen 325 Mg Tab) 650 mg PO Q4H PRN PRN Reason: Moderate Pain Stop: 09/14/21 15:16 Amoxicillin/Clavulanate Potassium (Amoxicillin/Clavulanate 875 Mg Tab) 1 tab PO BIDM [facility]; Protocol Stop: 08/22/21 16:59 Last Admin: 08/16/21 08:01 Dose: 1 tab Documented by: Aspirin (Aspirin 81 Mg Ectab) 81 mg PO [facility] Stop: 09/15/21 11:29 Magnesium Oxide (Magnesium Oxide 400 Mg Tab) 400 mg PO [facility] Stop: 09/15/21 11:29 Ondansetron HCl (Ondansetron Inj 2 Mg/Ml 2 Ml Vial) 4 mg IV Q4H PRN PRN Reason: Nausea And Vomiting Stop: 09/14/21 15:16 (1) Cat bite of left lower leg Encounter type: initial encounter Qualified Code(s): S81.852A - Open bite, left lower leg, initial encounter; W55.01XA - Bitten by cat, initial encounter
[2021-08-16] MEDS ORDERED: MAGNESIUM OXIDE 400 MG TAB PO SCH (11:30)
[2021-08-16] MEDS ORDERED: ASPIRIN 81 MG ECTAB PO SCH (11:30)
--- NOTE | 2021-08-16 12:23 | Discharge Summary ---
Date of Service August 16, 2021 Admission HPI Per Admitting Provider This is a 70 yo F without significant PMHx other than CKD stage III, no surgical history, and not on any medications, who presents with acute onset of tachycardia after she completed a workout on the treadmill. She typically walks daily on the treadmill going at least 1.25 miles and holding weights while on a slight incline. 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 Her is present with her bedside. She notes that after getting off the treadmill she could not even count how fast her pulse was, as she was on the phone with a nurse from [facility]. They suggested that she come to the ER because she had associated lightheadedness, dizziness whenever she attempted to stand up and do anything. She denies caffine consumption other than 1 cup per day but did not have any yet today. Pt does not normally eat breakfast but does drink adequate amounts of water. Yesterday she sustained a cat bite on the left lower leg by a stray cat that she was feeding outside there [place] at home. She denies any irregular-like behavior of the animal, and does not think that it currently has rabies. She also recently had a pet last February which she is still very sad about. Once here in the ER she was given 2 doses of adenosine 6 mg then 18, however ER physician reports that it did not convert at that point. Shortly after this time her heart rate converted spontaneously back into NSR. She does not take any medications at baseline. Her is with her at bedside and supports the history. Admission Exam Per Admitting Provider General: awake, alert, no apparent distress, physically fit Head: Normocephalic, atraumatic ENT: PERRL, EOMI, no pharyngeal exudate, mucous membranes moist Chest: Clear to auscultation, on room air, no adventitious breath sounds Cardiac: Regular rate and rhythm, no murmur, no JVD, normal peripheral pulses, good capillary refill Abdominal: NABS x 4 quadrants, soft, nondistended, nontender to palpation, no rebound or guarding Extremities: Lateral LLE with bite wounds, blackened area without surrounding erythema, no purulent material draining from the area. Otherwise normal inspection, no peripheral edema or erythema, calfs nontender to palpation Psych: Normal mood and affect Neuro: AAO x 3, strength intact bilaterally and rated 5/5, no motor deficits, speech is clear, no peripheral sensory deficits Principal Diagnosis (1) SVT (supraventricular tachycardia) (2) Palpitations (3) Hypotension (4) CKD (chronic kidney disease), stage III (5) Cat bite of left lower leg: Discharge Exam General- No acute distress Head- atraumatic Eyes- PERRL, EOMI, ENT- oropharynx clear Neck- supple, no JVD Lungs- clear to auscultation Heart- regular rhythm; no murmur Abdomen- normal bowel sounds, soft, nontender Extremities- no calf tenderness, + evidence of Left leg skin trauma from cat/bite puncture wounds Neuro- alert, oriented x 3; PERRL, EOMI; no facial palsy; no dysarthria Skin- warm & dry Discharge Data Allergies Allergy/AdvReac Type Severity Reaction Status Date / Time No Known Allergies Allergy Unverified 08/15/21 09:34 Consultations 08/15/21 10:23 ED Decision to Admit Stat 08/15/21 15:17 Consult Cardiology Routine Ordered Studies XR chest 1V portable CLINICAL HISTORY: Atypical chest pain TECHNIQUE: Single frontal radiograph of the chest was obtained. Comparison: None available at the time of this dictation. FINDINGS: No lines and tubes are seen. The cardiomediastinal silhouette is normal. The lungs are clear. No evidence of pleural effusion or pneumothorax. IMPRESSION: No acute chest disease. ACT 112: Negative or not required by law. Electronically signed by: Timoteo Mark M.D. 08/15/2021 8:56 AM Dictated:08/15/21855 Transcribed: 08/15/21855 Hospital Course (1) SVT (supraventricular tachycardia): (2) Palpitations: (3) Hypotension: Present on admission with tachycardia associated with dizziness and lightheadedness In the ER adenosine 6 mg and 18 mg IV push given, then later converted spontaneously shortly thereafter After conversion she became hypotensive, but improved with IV fluids. Cardiology on board No plan to start on beta napoleon now due to low HR ECHO showed Normal LV function and no wall motion abnormalities Will need to arrange for outpatient with EP referral Continue Mag supplement Clinically stable Elevated troponin Mostly due to sustained tachyarrhythmia. ECHO showed normal LV function and no wall motion abnormalities Outpatient stress echo to be arranged given minimally elevated troponin and family history of premature CAD. Continue ASA 81 mg (4) CKD (chronic kidney disease), stage III: Hx of such, stable. Cr. 1.3 on arrival Creatinine 1.01 (5) Cat bite of left lower leg: - occurred yesterday by a stray, she denies any known history of rabies of the animal. There is bite wounds over the lateral left lower leg, no surrounding erythema or appearance of cellulitis. The wound is not purulent. Patient has been putting Neosporin on it. - no wbc, afebrile -Continue Augmentin BID DVT ppx: - teds, scds, ambulatory CODE: Full code Disposition Discharge home today Total Time Total Time Spent Total Time Spent (In Minutes): 35 minutes Discharge Plan Discharge Items Patient Disposition: Home - Self-Care Reason For Visit: SVT Discharge Diagnosis: (1) SVT (supraventricular tachycardia) (2) Palpitations (3) Hypotension (4) CKD (chronic kidney disease), stage III (5) Cat bite of left lower leg: Activity: Resume your previous activity Non-emergency contact: Primary Care Provider and Haul Truck Driver Call non-emergency contact if: you have any medication questions, your symptoms worsen and your temperature is above 101 Follow-up/Referrals: Courtney Paz DO [Primary Care Provider] - (Date & Time 08/24/2021 11:10 AM Provider Courtney Paz DO Department [facility] ) Diet: Heart Healthy Addtl Attending Provider Instructions: Follow up with your Primary care provider Dr. Paz on 08/24/2021 @ 11:10 AM at the [facility] Follow up with cardiology to arrange for outpatient stress echo and to evaluate by the electrophysiology cardiology Complete the course of the antibiotic seek medical attention if your symptoms reoccur or develop any fever Pending Studies at Discharge: No Stand-Alone Forms: My Upshot, Smoking Cessation Medications and DC Order Prescriptions: New aspirin 81 mg Tablet,Delayed Release (Dr/Ec) 81 mg PO QAM 30 Days Qty: 30 RF: 0 magnesium oxide 400 mg (241.3 mg magnesium) Tablet 400 mg PO QAM Qty: 30 RF: 0 amoxicillin-pot clavulanate 875-125 mg tablet 1 tab PO BID 7 Days Qty: 14 RF: 0 Continued cyclosporine [Restasis] 0.05 % dropperette 1 p OPB BID RF: 0 Discharge Orders: Discharge Order (Routine); Ordered 08/16/21 Ordered By: Radha Ryan Admission Data Admit Date/Time: 08/15/21 10:38 Attending Provider: Radha Ryan Admit Provider: Miguel Angel Kenney Primary Care Provider: Courtney Paz Other Providers: Miguel Angel Kenney ; Jorge Nam Other Interventions: Discharge Summary Assessment (RN) Last Done: 08/16/21 12:31
== END 2021-08-16 13:19 | disposition home or self-care (01) ==
LOC: EDBD → MERGE 08:14 → ED 08:14 → 2S 10:38 → SUATTDRO 10:38 → INTOOBSV 10:38 → 2S 13:58

== ENCOUNTER 2025-04-25 08:19 | Inpatient (IN) ==
[2025-04-25 08:52] LABS: Hematocrit (blood only) 42.8 % (37.0-47.0); Hemoglobin 14.1 g/dL (12.0-16.0); Immature Granulocytes # (auto) 0.02 K/uL (0.01-0.20); Immature Granulocytes % (auto) 0.2 %; Mean Corpuscular Hemoglobin 29.7 pg (25.0-34.0); Mean Corpuscular Volume 90.1 fL (80.0-100.0); Platelet Count 203 K/uL (130-400); RDW Standard Deviation 41.0 fL (36.4-46.3); Red Blood Count 4.75 M/uL (4.20-5.40); White Blood Count 10.82 K/ul (4.8-10.8)
--- NOTE | 2025-04-25 09:02 | XRay Report ---
SINGLE VIEW CHEST CLINICAL HISTORY: Chest pain FINDINGS: 2 AP, portable, upright chest radiographs compared to to study dated 08/15/2021. The heart is mildly enlarged. The pulmonary vasculature is noncongested. Chronic interstitial thickening is simil ar to previous. There is bibasilar scarring/atelectasis. No airspace consolidation or large pleural e ffusion is identified. No pneumothorax is seen. The skeletal structures are osteopenic. The bony thor ax is grossly intact. IMPRESSION: No acute cardiopulmonary abnormality is identified. ACT 112: Negative or not required by law. Electronically signed by: Mayo Key M.D. 04/25/2025 9:00 AM
--- NOTE | 2025-04-25 09:17 | Emergency Department Note ---
Impression & Plan Elevated troponin, H/O supraventricular tachycardia ED Provider Note NAME: MARSHA PERRY AGE: 74 SEX: F : 1950 ARRIVES VIA: Ambulance INFORMANT: Patient, ED PROVIDER(S): Grace Epps MD CHIEF COMPLAINT: SVT HPI: This is a 74-year-old female presented for possible episode of SVT. Patient states that she think she had an episode of SVT at home. She was on the treadmill when she had an episode of tachycardia. She has had numerous episodes of SVT in the past. Usually he is able to get rid of them in a few minutes. This took about 1 hour. She dunked her head into a ice bucket which finally resolved her symptoms. She reports EMS was called and noted she had a low blood pressure and recommended transfer to the ER. Otherwise patient does state she is having cold-like symptoms over the past 2 days, cough, chills and sore throat. At this time she feels at her baseline. No current chest pain, shortness of breath, leg pain, swelling, back pain. ROS: See above HPI for pertinent positives & negatives. A total of 10 systems reviewed and were otherwise negative. PAST MEDICAL HISTORY: See Below PAST SURGICAL HISTORY: See Below FAMILY HISTORY: See Below SOCIAL HISTORY: See Below HOME MEDICATIONS: See Below ALLERGIES: See Below VITALS: See Below PHYSICAL EXAMINATION: General: resting comfortably in no acute distress Head: Normocephalic and atraumatic Eyes: Normal inspection, extraocular muscles intact Ear, nose, throat: Normal external exam Neck: Normal range of motion Respiratory: lungs clear to auscultation bilaterally Cardiovascular: Regular rate/rhythm, no murmur GI: soft, nontender, no guarding or rebound Extremities: nontender, moves all extremities Neuro: The patient awake and alert, appropriately conversive, no focal deficits, symmetric faces Skin: Warm, dry, and intact MEDICAL DECISION MAKING: This is a 74-year-old female presenting for possible episode of SVT. Patient currently in sinus rhythm. EKG as below. Will do screening workup to assess for electrolytes, troponin, chest x-ray. Patient also having URI type symptoms underlying as possible triggering source of SVT. - Bloodwork is reviewed showing no significant leukocytosis, anemia, electrolyte or creatinine abnormality. - Troponin minimally elevated at 19.8. Likely due to demand from SVT. -Chest Xray independently interpreted by me showing no pneumothorax, focal opacity, or pleural effusions. -Second reports having elevated at 123, uptrending. Patient still asymptomatic however due to increased troponin will require admission for further cardiac workup. - Discussed with hospital service for admission Differential diagnosis: SVT, tachydysrhythmia, PE, electrolyte disturbance, ACS Diagnostics interpreted by me: ECG: ECG independently interpreted by me with normal sinus rhythm, rate of 96, normal UT, normal QRS, normal QTc, no ST segment elevations consistent with STEMI criteria Cardiac Monitoring: An order was placed for continuous cardiac monitoring. The monitor shows a rate of 90 with sinus rhythm. Past Med/Surg History Problem List (Updated 04/25/25 @ 16:55 by Grace Epps MD) H/O supraventricular tachycardia (Acute) Elevated troponin (Acute) Medical History (Updated 04/25/25 @ 16:55 by Grace Epps MD) Elevated troponin Hypomagnesemia Ventricular tachycardia Cat bite of left lower leg CKD (chronic kidney disease), stage III SVT (supraventricular tachycardia) Family History (Updated 08/15/21 @ 11:37 by Renetta Aguilar PA-C) Father Heart disease Myocardial infarction Mother Heart disease Myocardial infarction Brother Heart disease Myocardial infarction Social History Smoking Status: Never smoker Second Hand Exposure: No; Do You Dip or Chew Tobacco: No; Tobacco Cessation Education Requested by Patient: No Hx Alcohol Use: No Hx Substance Use: No Preferred Language: Yakut Communication Ability: Effective Project Safety Manager Required: No Beliefs That Will Affect Care: None marital status: Current Living Situation: Spouse How many Children do You have: 1 Other Information That Helps Us Care for You: No Feels Safe at Home: Yes Safety Concerns: Feels Safe At This Time Assistive Devices: Glasses Allergies Allergies Allergy/AdvReac Type Severity Reaction Status Date / Time No Known Allergies Allergy Unverified 08/15/21 09:34 Home Meds Home Medications Medication Instructions Recorded Confirmed cyclosporine 0.05 % eye drops in a 1 drp OPB BID 08/15/21 04/25/25 dropperette (Restasis) Previous Rx's Medication Instructions Recorded magnesium oxide 400 mg (241.3 mg 400 mg PO QAM #30 tabs 08/16/21 magnesium) tablet Results & Data (ED) Vital Signs Vital Signs - 24 hr 04/25/25 08:10 04/25/25 08:10 04/25/25 08:41 Temperature 36.5 C Temperature Source Oral Pulse Rate 93 H 85 Pulse Rate from SpO2 Sensor Pulse Rhythm Regular Respiratory Rate 19 20 Respiratory Effort / Characteristics Non-Labored Spontaneous Respiratory Depth Normal Blood Pressure 109/75 Blood Pressure Mean 86 Pulse Oximetry 96 97 97 Oxygen Delivery Method Room Air Room Air Room Air Sepsis Recent Fever Within 48 Hours No Sepsis New/Unexplained Change in Mental Status No Sepsis Action Taken by Nursing No Action Required 04/25/25 08:42 04/25/25 10:30 04/25/25 12:00 Temperature Temperature Source Pulse Rate 90 75 85 Pulse Rate from SpO2 Sensor 76 85 Pulse Rhythm Respiratory Rate 20 24 Respiratory Effort / Characteristics Respiratory Depth Blood Pressure 117/78 120/74 Blood Pressure Mean 91 89 Pulse Oximetry 97 99 Oxygen Delivery Method Sepsis Recent Fever Within 48 Hours Sepsis New/Unexplained Change in Mental Status Sepsis Action Taken by Nursing Laboratory Data 04/25/25 08:30 04/25/25 09:30 Lab Results 04/25/25 04/25/25 04/25/25 Range/Units 08:30 09:30 10:36 WBC 10.82 H (4.8-10.8) K/ul RBC 4.75 (4.20-5.40) M/uL Hgb 14.1 (12.0-16.0) g/dL Hct 42.8 (37.0-47.0) % MCV 90.1 (80.0-100.0) fL MCH 29.7 (25.0-34.0) pg MCHC 32.9 (32.0-36.0) g/dL RDW Std Deviation 41.0 (36.4-46.3) fL RDW Coeff of Gilson 12.4 (11.5-14.5) % Plt Count 203 (130-400) K/uL MPV 10.4 (9.4-12.4) fL Immature Gran % (Auto) 0.2 % Neut % (Auto) 82.7 % Lymph % (Auto) 8.8 % [place]upe % (Auto) 6.7 % Eos % (Auto) 1.1 % Baso % (Auto) 0.5 % Neut # (Auto) 8.96 H (1.40-6.50) K/uL Lymph # (Auto) 0.95 L (1.20-3.40) K/uL [place] # (Auto) 0.72 H (0.11-0.59) K/uL Eos # (Auto) 0.12 (0.00-0.50) K/uL Baso # (Auto) 0.05 (0.00-0.20) K/uL Immature Gran # (Auto) 0.02 (0.01-0.20) K/uL Sodium TNP 139 Potassium TNP 4.3 Chloride 105 (98-107) mmol/L Carbon Dioxide 25 (21-32) mmol/L Anion Gap TNP BUN 22 (6-23) mg/dl Creatinine 1.19 (0.6-1.2) mg/dl Est Cr Clr Drug Dosing 38.4 ml/min eGFR 47.98 BUN/Creatinine Ratio 18.5 (10-20) Glucose 111 H (70-99(Fasting)) mg/dl Calcium 9.3 (8.6-10.3) mg/dl Total Bilirubin 0.6 (0.2-1.0) mg/dl AST TNP 26 ALT 17 (7-52) U/L Alkaline Phosphatase 92 (34-104) U/L Troponin I High Sens 19.8 H 123.1 H* D (0-14) pg/ml Total Protein 6.8 (6.0-8.3) gm/dl Albumin 4.2 (3.4-5.0) gm/dl Globulin 2.6 (2.5-4.0) gm/dl Albumin/Globulin Ratio 1.6 (0.9-2) Lipase 20 (11-82) U/L Imaging Data Radiologist's Impression: Chest X-Ray 04/25/25 08:41 SINGLE VIEW CHEST CLINICAL HISTORY: Chest pain FINDINGS: 2 AP, portable, upright chest radiographs compared to to study dated 08/15/2021. The heart is mildly enlarged. The pulmonary vasculature is noncongested. Chronic interstitial thickening is similar to previous. There is bibasilar scarring/atelectasis. No airspace consolidation or large pleural effusion is identified. No pneumothorax is seen. The skeletal structures are osteopenic. The bony thorax is grossly intact. IMPRESSION: No acute cardiopulmonary abnormality is identified. ACT 112: Negative or not required by law. Electronically signed by: Mayo Key M.D. 04/25/2025 9:00 AM Discharge Plan Visit Data Chief Complaint: Cardiac Assessment Stated Complaint: CARDIAC ASSESMENT ED Provider: Grace Epps Discharge Problem: Elevated troponin, H/O supraventricular tachycardia Patient Disposition: Admitted As Inpatient Condition: Fair Discharge Instructions Interventions: ED Discharge Assessment Last Done: 04/25/25 13:34
[2025-04-25 09:22] LABS: Alanine Aminotransferase 17 U/L (7-52); Albumin Globulin Ratio 1.6 (0.9-2); Albumin Level 4.2 gm/dl (3.4-5.0); Alkaline Phosphatase 92 U/L (34-104); Bilirubin,Total 0.6 mg/dl (0.2-1.0); Blood Urea Nitrogen 22 mg/dl (6-23); Calcium 9.3 mg/dl (8.6-10.3); Carbon Dioxide 25 mmol/L (21-32); Chloride 105 mmol/L (98-107); Creatinine Clr Calc Pharmacy 38.4 ml/min; Globulin 2.6 gm/dl (2.5-4.0); Glucose 111 mg/dl (70-99(Fasting)); Lipase 20 U/L (11-82); Total Protein 6.8 gm/dl (6.0-8.3)
[2025-04-25 10:12] LABS: Potassium 4.3 mmol/L (3.5-5.1); Sodium 139.0 mmol/L (136-145)
--- NOTE | 2025-04-25 11:53 | Electrocardiogram Report ---
Test Reason : Blood Pressure : */* mmHG Vent. Rate : 96 BPM Atrial Rate : 96 BPM P-R Int : 132 ms QRS Dur : 68 ms QT Int : 356 ms P-R-T Axes : 9 -5 29 degrees QTcB Int : 449 ms Normal sinus rhythm Normal ECG When compared with ECG of 15-Aug-2021 08:50, Criteria for Septal infarct are no longer Present Confirmed by Phillip Llamas ([id number]) on 04/25/2025 11:52:49 AM Referred By: Confirmed By: Phillip Llamas
[2025-04-25] MEDS ORDERED: POLYETHYLENE (MIRALAX) 17 GM PACK PO PRN (12:11)
[2025-04-25] MEDS ORDERED: ALUMINUM/MAGNESIUM SUSP 30 ML UDC PO PRN (12:11)
[2025-04-25] MEDS ORDERED: MAGNESIUM HYDROXIDE SUSP 30 ML UDC PO PRN (12:11)
[2025-04-25] MEDS ORDERED: ACETAMINOPHEN 325 MG TAB PO PRN (12:11)
[2025-04-25] MEDS ORDERED: NITROGLYCERIN SL 0.4 MG/TAB TAB SL PRN (12:13)
--- NOTE | 2025-04-25 12:26 | History & Physical Report ---
Date of Service April 25, 2025 Assessment & Plan (1) Palpitations: Plan Palpitation Likely supraventricular tachycardia Elevated troponin, rule out ACS Patient comes in with palpitation, see HPI. Pt w/ ho of SVT. Admitting EKG with no acute ST or T changes, admitting troponin uptrending. Patient denies any chest pain and since EKG with no changes, will hold on any anticoagulation. Continue to trend troponin, get echo, telemonitoring. Will get lipid panel and A1c. Cardiology consult. If with frequent SVT, may consider metoprolol. Monitor and replete electrolytes Likely viral URTI: Patient feeling sick for about a day, throat congested and erythematous, patient complains of sore throat. Will get respiratory BioFire. Continue hydration and rest, continue supportive care. Dry eyes: Continue home eyedrops. DVT prophylaxis: Heparin subcu Full code History of Present Illness Chief Complaint: Palpitation Primary Care Provider: Courtney Paz DO 74-year-old lady with PMH of SVT, dry eyes presents to the ED with complaint of palpitation that took 1 hour to recover. Patient called EMS and by the time EMS came in her palpitation has improved but her SBP was in 80s and hence she was referred to the ED. Patient reports that she was admitted for SVT in 2021 and has had multiple SVTs since then which generally resolves with maneuvers she has been taught within 1 to 2-minute but this time it took her about 1 hour, she did laying down/bearing down and finally dunked her face into the ice bucket with helped resolve her symptoms. Patient reports she has been feeling slightly sick since about a day with some sore throat, maybe mild fever, congested nose/face and sneezing. Will get resp biofire. She was on a treadmill and slowly increasing her intensity when she started feeling palpitation. Patient does report some nausea and lightheadedness with the event. patient denies any chest pain or shortness of breath. At bedside exam, patient denies any nausea or vomiting, patient reports no acute changes in her bowel or bladder or appetite. Patient denies smoking/alcohol/illicit drug use. Patient reports taking eyedrops at home, denies any other medications at home. Plan of care discussed with the patient in detail, she was understanding. Full code Allergies Allergy/AdvReac Type Severity Reaction Status Date / Time No Known Allergies Allergy Unverified 08/15/21 09:34 Home Medications Medication Instructions Recorded Confirmed Type cyclosporine 0.05 % eye drops in a 1 drp OPB BID 08/15/21 04/25/25 History dropperette (Restasis) magnesium oxide 400 mg (241.3 mg 400 mg PO QAM #30 tabs 08/16/21 04/25/25 Rx magnesium) tablet Past Med/Surg History Problem List Medical History (Updated 09/16/21 @ 00:09 by Emily Cordova) Elevated troponin Hypomagnesemia Ventricular tachycardia Cat bite of left lower leg CKD (chronic kidney disease), stage III SVT (supraventricular tachycardia) Family History (Updated 08/15/21 @ 11:37 by Renetta Aguilar PA-C) Father Heart disease Myocardial infarction Mother Heart disease Myocardial infarction Brother Heart disease Myocardial infarction Social History Smoking Status: Never smoker Second Hand Exposure: No; Do You Dip or Chew Tobacco: No; Hx Alcohol Use: No Hx Substance Use: No Preferred Language: Haitian Communication Ability: Effective Increment Manager Required: No Beliefs That Will Affect Care: None marital status: Current Living Situation: Spouse How many Children do You have: 1 Feels Safe at Home: Yes Assistive Devices: Glasses Review of Systems Review of Systems: Negative otherwise mentioned in HPI. Physical Exam Physical Exam: GENERAL: Alert and oriented x3. NAD, on RA. HEENT: No pallor, no icterus. Pupils equal, round and reactive to light. Oral mucosa moist. NECK: No JVD, no neck masses. HEART: S1 and S2 heard. Regular rate and rhythm. No murmur, no gallop. RESPIRATORY SYSTEM: Normal AP diameter. No accessory muscle use. No wheezing, no crackles. ABDOMEN: Soft, bowel sounds present, nontender, no distention. CENTRAL NERVOUS SYSTEM: No facial droop. Speech is clear. Obeys simple commands. Moves extremities. EXTREMITIES: No edema, no erythema seen. Results & Data Results & Data Vital Signs (Past 12 Hours) Vital Signs Temp Pulse Resp BP Pulse Ox O2 Del Method 04/25/25 12:00 85 24 120/74 99 04/25/25 10:30 75 20 117/78 97 04/25/25 08:42 90 04/25/25 08:41 85 20 97 Room Air 04/25/25 08:10 97 Room Air 04/25/25 08:10 36.5 C 93 H 19 109/75 96 Room Air
[2025-04-25 14:36] LABS: Chlamydia pneumoniae PCR Not Detected (NotDetected); Coronavirus 229E PCR Not Detected (NotDetected); Coronavirus CoV-2 (COVID19)PCR Not Detected (NotDetected); Coronavirus HKU1 PCR Not Detected (NotDetected); Coronavirus NL63 PCR Not Detected (NotDetected); Coronavirus OC43PCR Not Detected (NotDetected); Human Metapneumovirus PCR Not Detected (NotDetected); Parainfluenza Virus 1 PCR Not Detected (NotDetected); Parainfluenza Virus 2 PCR Not Detected (NotDetected); Parainfluenza Virus 3 PCR Not Detected (NotDetected); Parainfluenza Virus 4 PCR Not Detected (NotDetected); Respiratory Syncytial VirusPCR Not Detected (NotDetected); Rhinovirus/Enterovirus PCR Not Detected (NotDetected)
[2025-04-25 21:59] LABS: Partial Thromboplastin Time 23 Seconds (21-31)
[2025-04-26 06:33] LABS: Hematocrit (blood only) 41.0 % (37.0-47.0); Hemoglobin 14.1 g/dL (12.0-16.0); Mean Corpuscular Hemoglobin 30.4 pg (25.0-34.0); Mean Corpuscular Volume 88.4 fL (80.0-100.0); Platelet Count 217 K/uL (130-400); RDW Standard Deviation 40.9 fL (36.4-46.3); Red Blood Count 4.64 M/uL (4.20-5.40); White Blood Count 6.08 K/ul (4.8-10.8)
[2025-04-26 06:53] LABS: Anion Gap 7.0 (3-11); Blood Urea Nitrogen 23.0 mg/dl (6-23); Calcium 9.8 mg/dl (8.6-10.3); Carbon Dioxide 27.0 mmol/L (21-32); Chloride 105.0 mmol/L (98-107); Creatinine Clr Calc Pharmacy 36.8 ml/min; Glucose 92.0 mg/dl (70-99(Fasting)); Magnesium 2.1 mg/dl (1.7-2.4); Potassium 4.9 mmol/L (3.5-5.1); Sodium 139.0 mmol/L (136-145)
--- NOTE | 2025-04-26 08:42 | Cardiology Consultation ---
Date of Consultation April 26, 2025 Assessment & Plan (1) Palpitations: (2) H/O supraventricular tachycardia: (3) Elevated troponin: (4) Mitral regurgitation: Plan Assessment: 74 year old female admitted for palpitations, similar in sensation to prior SVT event, not alleviated with vagal maneurver. Remote history of SVT 2021. Troponin elevation with peak of 297.3 and trending down. No acute EKG changes. Echocardiogram with preserved LVEF with new moderate to severe MR, not noted on prior studies. Cardiology consulted for further evaluation/recommendations. Plan: 1. Palpitations 2. History of SVT 3. Troponin elevation 4. Mitral regurgitation. -patient with prior SVT event dating back to 2021, not responsive to adenosine, but had spontaneously converted. Stress echocardiogram at that time negative for inducible ischemia, notation of mild AI and mild MR. -patient's palpitations had ceased prior to EMS arrival and she denies any recurrence since time of admission -Review of telemetry shows NSR with no acute events overnight. -Modest troponin elevation with peak of 297.3, in part secondary to tachycardia event; however, echocardiogram now shows moderate to severe MR. -Case was discussed with Dr. Hidalgo. patient will be made NPO with plans for cardiac catheterization (left and right heart cath) for further evaluation of troponin elevation and to assess measurements related to new MR findings. -Nursing staff was contacted via phone. -Dr. Hidalgo to discuss findings with patient and plans to pursue cardiac catheterization. -Patient is not currently on any AV rishi blocking agents. Will await catheterization results prior to any further medication recommendations. -Labs reviewed. Electrolytes stable. Awaiting TSH Case has been discussed with Dr. Hidalgo. Further recommendations regarding plan of care as per his assessment. I spent a total of 50 minutes on the date of service in preparation, delivery, documentation of the care provided to the patient excluding any time spent in the performance of separately billed services. WOODY Reyna [facility] Supervising Physician Co-Signing Physician Notes Patient seen and examined. Past medical history, surgical history, social history and family history have been reviewed. The medical record and all the above studies have been reviewed. Case DW SHEBA including management. 04/25/25 ECHO Interpretation Summary Left ventricular systolic function is normal. Left Ventricular Ejection Fraction = 60-65%. A full diastolic examination was done with clinical findings of Class I diastolic dysfunction. Mild aortic regurgitation. There is moderate to severe mitral regurgitation. There is mild tricuspid regurgitation. Small pericardial effusion. There are no echocardiographic indications of cardiac tamponade. 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 SVT (AVNRT) that presented to the ER with complaints of palpitations lasting approx one hour. She had summoned EMS, upon arrival her palpitations had resolved, but her Systolic blood pressure was noted to be in the 80's. She was seen by Dr. Trinidad ([facility]) dating back to 2021 for a one-time episode of SVT with failed response to Adenosine x 2 doses, but had spontaneously converted. She has not followed with cardiology since. Patient states she has had multiple "brief" episodes over the years that typically resolve with use of vagal maneuvers. patient feels well at time from a cardiac perspective at time of examination. She has had no recurrence of symptoms since time of admission. Of note, patient complains of acute URI symptoms sore throat and congestion. EKG NSR Rate 96bpm, QTC 449ms High sensitivity troponin 19.8/123.1/214.4/297.3/248.7 Echocardiogram pending Review of telemetry demonstrates Sinus Rhythm rates 70-80's. No acute events overnight. Allergies Allergy/AdvReac Type Severity Reaction Status Date / Time No Known Allergies Allergy Unverified 08/15/21 09:34 Home Medications Medication Instructions Recorded Confirmed Type cyclosporine 0.05 % eye drops in a 1 drp OPB BID 08/15/21 04/25/25 History dropperette (Restasis) magnesium oxide 400 mg (241.3 mg 400 mg PO QAM #30 tabs 08/16/21 04/25/25 Rx magnesium) tablet Patient History Medical History (Updated 04/26/25 @ 11:05 by WOODY Reyna) Elevated troponin Hypomagnesemia Ventricular tachycardia Cat bite of left lower leg CKD (chronic kidney disease), stage III SVT (supraventricular tachycardia) Family History (Updated 08/15/21 @ 11:37 by Renetta Aguilar PA-C) Father Heart disease Myocardial infarction Mother Heart disease Myocardial infarction Brother Heart disease Myocardial infarction Social History Smoking Status: Never smoker Second Hand Exposure: No; Do You Dip or Chew Tobacco: No; Tobacco Cessation Education Requested by Patient: No Hx Alcohol Use: No Hx Substance Use: No Preferred Language: Swedish Communication Ability: Effective Adult Education Professional Required: No Beliefs That Will Affect Care: None marital status: Current Living Situation: Spouse How many Children do You have: 1 Other Information That Helps Us Care for You: No Feels Safe at Home: Yes Safety Concerns: Feels Safe At This Time Assistive Devices: Glasses Review of Systems Review of Systems: All systems reviewed & are unremarkable except as noted in HPI & below Physical Exam Constitutional: well developed and well nourished; no acute distress and not ill appearing Neck: normal visual inspection and trachea midline Respiratory: normal respiratory effort, lungs clear to auscultation Cardiovascular: Rate/Rhythm: regular rate and regular rhythm Heart Sounds: normal S1, normal S2 and + murmur (+2/6 systolic ) Vessels: dorsalis pedis pulses present; no JVD Extremities: no edema Skin: no rashes, warm and dry Psychiatric: A+Ox3, euthymic affect Results & Data Vital Signs (Past 12 Hours) Vital Signs Temp Pulse Pulse Resp BP Pulse Ox O2 Del Method 04/26/25 08:08 36.6 C 84 19 122/86 94 Room Air 04/26/25 03:13 36.5 C 65 20 104/71 97 Room Air 04/25/25 23:00 73 04/25/25 23:00 37.0 C 75 20 100/67 95 Room Air Laboratory Results Cardiac Enzymes 04/25/25 04/25/25 04/25/25 Range/Units 10:36 12:30 16:20 Troponin I High Sens 123.1 H* D 214.4 H* D 297.3 H* D (0-14) pg/ml 04/25/25 Range/Units 21:05 Troponin I High Sens 248.7 H* (0-14) pg/ml Coagulation 04/25/25 Range/Units 21:05 APTT 23 (21-31) Seconds Lipids 04/26/25 Range/Units 05:38 Triglycerides 53 (0-150) mg/dl Cholesterol 196 (0-200) mg/dl HDL Cholesterol 69 mg/dl Cholesterol/HDL Ratio 2.8 (0-5) CBC 04/26/25 Range/Units 05:38 WBC 6.08 (4.8-10.8) K/ul RBC 4.64 (4.20-5.40) M/uL Hgb 14.1 (12.0-16.0) g/dL Hct 41.0 (37.0-47.0) % Plt Count 217 (130-400) K/uL Comprehensive Metabolic Panel 04/26/25 Range/Units 05:38 Sodium 139 (136-145) mmol/L Potassium 4.9 (3.5-5.1) mmol/L Chloride 105 (98-107) mmol/L Carbon Dioxide 27 (21-32) mmol/L BUN 23 (6-23) mg/dl Creatinine 1.24 H (0.6-1.2) mg/dl Glucose 92 (70-99(Fasting)) mg/dl Calcium 9.8 (8.6-10.3) mg/dl Intake and Output 04/25/25 04/26/25 04/26/25 22:59 06:59 14:59 Intake Total 300 / 540 Balance 300 / 540 Intake: Oral 300 / 540 Other: # Unmeasured Voids 1 1 Weight 71.4 kg Weight Measurement Method Built in [facility] Diagnostic Findings Echocardiogram 04/26/25 LV systolic function is normal LVEF 60-65% Class I diastolic dysfunction Mild AI Moderate to severe MR Mild TR small pericardial effusion No echocardiographic evidence of cardiac tamponade PG Care Time/CCT Total # of Minutes Spent Total Time Spent with Patient: Total time spent is greater than 50% in coordination of care (as documented) at patient's floor/unit and/or counseling patient: Coding Level of Care Code 99292 IN/OBS CONSULT LVL 5,80M Diagnoses Palpitations R00.2 H/O supraventricular tachycardia Z86.79 Elevated troponin R79.89 Mitral regurgitation I34.0 Time Spent (min) 50
[2025-04-26 08:44] LABS: Hemoglobin A1C 5.1 % (4.5-5.6)
--- NOTE | 2025-04-26 09:30 | XCELERA ---
[id number]
[2025-04-26 09:37] LABS: Thyroid Stimulating Hormone 1.631 uIu/ml (0.300-4.500)
[2025-04-26 09:48] LABS: HDL Cholesterol 69.0 mg/dl; Triglycerides 53.0 mg/dl (0-150)
[2025-04-26 09:56] LABS: Cholesterol 196.0 mg/dl (0-200)
--- NOTE | 2025-04-26 12:22 | Hospitalist Progress Note ---
Date of Service April 26, 2025 Assessment & Plan (1) Palpitations: Plan 74F with PMH SVT who presents with palpitations x 1 hour at home #Palpitations -Likely SVT -TSH normal -Currently in NSR -Cardio following -Troponin elevation likely type II nstemi/demand ischemia from tachycardia -No chest pain or EKG changes -TTE showing new severe mitral regurgitation, small pericardial effusion Plan -For LHC and RHC by cardio -Appreciate cardio input -Continue cardiac monitoring I spent a total of 45 minutes coordinating, documenting, and providing care for this patient excluding time spent in the performance of separately billed services. This included personally reviewing all current laboratories and imaging studies, medical reconciliation, outpatient chart review and discussion with specialists Admission and Anticipated Discharge Date Admission Date: April 25, 2025 Subjective Feeling well this am. Patient denies F/C, CP, palpitations, SOB, dyspnea, abd pain, N/V/D Physical Exam Physical Exam: Vitals and labs reviewed General: Well appearing, NAD HEENT: EOMI, PERRLA Neck: Supple Cardiac: RRR no rubs gallops or murmurs Lungs: CTA no rhonchi wheezing or rales Abd: S NT ND BS positive : Deffered MSK: Full ROM. No obvious deformities Ext: No Edema cyanosis Skin: Warm, Dry Neuro: AOx3 No focal deficits. Psych: Normal Mood Results & Data Results & Data Vital Signs (Past 12 Hours) Vital Signs Temp Pulse Resp BP Pulse Ox O2 Del Method 04/26/25 11:13 36.7 C 68 18 114/78 95 Room Air 04/26/25 08:08 36.6 C 84 19 122/86 94 Room Air 04/26/25 03:13 36.5 C 65 20 104/71 97 Room Air Laboratory Results Abnormal lab results 04/25/25 04/25/25 04/25/25 Range/Units 12:30 16:20 21:05 Creatinine (0.6-1.2) mg/dl Troponin I High Sens 214.4 H* D 297.3 H* D 248.7 H* (0-14) pg/ml 04/26/25 Range/Units 05:38 Creatinine 1.24 H (0.6-1.2) mg/dl Troponin I High Sens (0-14) pg/ml
--- NOTE | 2025-04-26 13:36 | Pre Anesthesia Assessment ---
Date of Service April 26, 2025 Pre Sedation Assessment Vital Signs Temp Pulse Pulse Resp BP Pulse Ox O2 Del Method 04/26/25 13:26 80 16 139/101 H 95 Room Air 04/26/25 11:13 98.1 F 68 18 114/78 95 Room Air 04/26/25 08:08 97.9 F 84 19 122/86 94 Room Air 04/26/25 03:13 97.7 F 65 20 104/71 97 Room Air 04/25/25 23:00 73 04/25/25 23:00 98.6 F 75 20 100/67 95 Room Air 04/25/25 19:49 98.1 F 74 20 103/68 92 Room Air 04/25/25 15:21 98.4 F 81 17 100/67 94 Room Air 04/25/25 14:10 98.1 F 73 16 120/79 93 Room Air Cardiovascular + regular rate Respiratory + respiratory effort normal Pre-Sedation Airway Assessment Smoking Status: Never smoker Hx Sleep Apnea: No Hx Difficult Intubation: No Short, Thick Neck: No Thyromental Distance: < 3.5 Finger Breadths Oral Cavity: + WNL Mallampati Class: II ASA: ASA2E NPO Status Date of Last Intake of Fluids: 04/26/25 Time of Last Intake of Fluids: 08:00 Date of Last Intake of Solid Food: 04/26/25 Time of Last Intake of Solid Foods: 08:00 Procedure Planning Contraindications for Sedation: none Current Medications Reviewed: Yes Notes The planned sedation has been discussed with the patient. Informed Consent was obtained. I have identified the patient, determined the appropriateness of sedation and have assessed the patient immediately prior to the procedure. All medicine(s) and interventions are by my order.
[2025-04-26 14:41] LABS: iSTAT Art Bld Gas Base Excess -1.0 mmol/L (-9-1.8)
--- NOTE | 2025-04-26 14:50 | Cardiac Catheterization ---
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 Cardiac Status Clinical evaluation leading to the procedure CAD Presenation: Non STEMI Diagnostic Physicians Name: Piotr Wilkinson MD Closure Device Recommendations: Medical Therapy and/or Counseling Cardiac Cath Procedure Full Procedure Date April 26, 2025 Pre-Procedure Diagnosis Pre-Procedure Diagnosis: Non STEMI and Valvular Disease AUC Score AUC Score: 7 Post-Procedure Diagnosis Post-Procedure Diagnosis: Mild CAD Procedure(s) Performed Procedure(s) Performed: Coronary Angiography, Left Heart Cath, Right Heart Cath and Ultrasound Guided Vascular Access Grid Inspector Piotr Wilkinson MD Alarm Installer(s) Laura Estimated Blood Loss Estimated Blood Loss: 25 Medication(s) Medication(s): Fentanyl, Heparin, Lidocaine 1%, Nicardipine, Nitroglycerin and Versed Summary of Findings Indication: NSTEMI, mitral regurgitation Access: 6 Fr right antecubital vein, 6 Fr right radial artery, 6 Fr left radial artery Catheters: [place], 6 Fr [place] Procedure: Large bore right antecubital IV was exchanged for 6 Fr sheath. 6 Fr [place] navigated under fluoroscopy into PA 6 Fr sheath placed to right radial artery. Tortuosity/spasm/PAD and radial/brachial artery most notable at the elbow. Unable to pass Glidewire, V18, whisper 0.14 wire across disease/tortuous segment. Under ultrasound guidance 6 Fr sheath placed to left radial artery. Also noted to have some spasm/tortuosity at radial/brachial junction. Eventually able to cross with 0.14 [place] blue wire. 4 Fr catheters navigated to ascending aorta for coronary angiography Findings: LM -normal caliber, no significant disease LAD -proximal vessel medium caliber gives off 2 medium diagonals without significant disease. Latemid/distal LAD very small, tortuous and tapers prior to apex. Circumflex -small caliber, no significant disease. Gives off 2 small OM's without disease. RCA -dominant, large caliber, no significant disease. Right posterior AV branch, PDA without significant disease. RA 1 RV 17/1 PA 19/3 (10) PAWP 5 (no significant V wave) LV 9 PaSat 69% AoSat 97% Bryan CO/CI 4.9/2.8 Thermo CO/CI 3.4/2.0 Arterial Closure: TR band Summary: 1. Angiographically normal coronary arteries 2. Normal left and right sided filling pressures 3. Normal pulmonary artery pressures 4. Normal cardiac output Recommendations: Continued ASCVD risk factor modification Further assessment of mitral regurgitation per Dr. Hidalgo Hemodynamics Rest Ao:: 149/73/106 Final Ao: 147/77/105 LV: 142/9 Recommendations Recommendations: Medical Therapy and/or Counseling Radiation Exposure (mGy) 519 Contrast (mls) 85 Anesthesia Moderate [id number] Procedural Complication(s) None Disposition PCU I attest to the content of the Intraoperative Record and any orders documented therein. Any exceptions are noted below. ModaboundG Card Cath Procedure Codes Cardiac Catheterization Procedure 1: Cardiovascular Cath Procedures: 52797 Coronaries & LHC (+/-LV) & RHC Therapeutic Services & Ancillary Procedure 1: Cardiovascular Tx and Anc Procedures: 07576 Ultrasonic Guidance Vascular Access Moderate Sedation Procedure 1: Sedation/Anesthesia: 55621 Mod Sedation by the same physician;Init15 Min Child Age 5 & Up Procedure 2: Sedation/Anesthesia: 43045 Mod Sedation by the same physician; Ea [id number] Minutes PG Care Time/CCT Total # of Minutes Spent Total Time Spent with Patient: Total time spent is greater than 50% in coordination of care (as documented) at patient's floor/unit and/or counseling patient:
[2025-04-26] MEDS: HEPARIN (PORCINE) 1000 UNIT/ML 10 ML (CATH LAB USE ONLY) ONE (15:33)
[2025-04-26] MEDS: MIDAZOLAM HCL 1 MG/ML 2ML VIAL ONE ×2 (15:33→15:34)
[2025-04-26] MEDS: OPTIRAY 350 ONE (15:33)
[2025-04-26] MEDS: NITROGLYCERIN/D5W 100MCG/ML 20ML SYR ONE (15:34)
[2025-04-26] MEDS: niCARdipine 2,000 MCG/20 ML SYR ONE (15:34)
[2025-04-26 15:53] LABS: iSTAT Art Bld Gas Base Excess -2.0 mmol/L (-9-1.8)
--- NOTE | 2025-04-26 16:50 | Post Anesthesia Assessment ---
Date of Service April 26, 2025 Post Sedation Assessment Vital Signs Temp Pulse Pulse Resp BP Pulse Ox O2 Del Method 04/26/25 13:26 80 16 139/101 H 95 Room Air 04/26/25 11:13 98.1 F 68 18 114/78 95 Room Air 04/26/25 08:08 97.9 F 84 19 122/86 94 Room Air 04/26/25 03:13 97.7 F 65 20 104/71 97 Room Air 04/25/25 23:00 73 04/25/25 23:00 98.6 F 75 20 100/67 95 Room Air 04/25/25 19:49 98.1 F 74 20 103/68 92 Room Air Recovery Score Activity: Moves 4 extremities Respiration: Deep Breath/Cough Circulation: +/-20% PreAnes Value Consciousness: Fully Awake Oxygen Saturation: O2 needed for >90% Discharge Sedation Level of Care: Fast Track Phase II
[2025-04-27 07:58] VITALS: BP 110/73; RESP 16; TEMP 98.4; O2SAT 95
--- NOTE | 2025-04-27 10:21 | Cardiology Progress Note ---
Date of Service April 27, 2025 Assessment & Plan (1) Palpitations: (2) H/O supraventricular tachycardia: (3) Elevated troponin: (4) Mitral regurgitation: Plan Assessment: 74 year old female admitted for palpitations, similar in sensation to prior SVT event, not alleviated with vagal maneurver. Remote history of SVT 2021. Troponin elevation with peak of 297.3 and trending down. No acute EKG changes. Echocardiogram with preserved LVEF with new moderate to severe MR, not noted on prior studies. Cardiology consulted for further evaluation/recommendations. 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) ASA cardiac cath findings as above - normal coronaries further cardiac w/u as OP as indicated including possible GT and f/u ECHO Stable from cardiac standpoint for discharge Admission and Anticipated Discharge Date Admission Date: April 25, 2025 Subjective Patient on exam is lying in bed in NAD; no c/o cp, sob, palpitations, dizziness, LOC; feels well Review of Systems Review of Systems: as per hpi Physical Exam Constitutional: well developed and well nourished; no acute distress and not ill appearing Neck: normal visual inspection and trachea midline Respiratory: normal respiratory effort, lungs clear to auscultation Cardiovascular: Rate/Rhythm: regular rate and regular rhythm Heart Sounds: normal S1, normal S2 and + murmur (+2/6 systolic ) Vessels: dorsalis pedis pulses present; no JVD Extremities: no edema Skin: no rashes, warm and dry Psychiatric: A+Ox3, euthymic affect Results & Data Vital Signs (Past 12 Hours) Vital Signs Temp 36.9 C 04/27/25 07:57 Pulse 75 04/27/25 07:57 Resp 16 04/27/25 07:57 BP 110/73 04/27/25 07:57 Pulse Ox 95 04/27/25 07:57 O2 Del Method Room Air 04/27/25 07:57 Intake & Output 04/26/25 04/27/25 04/27/25 18:59 06:59 18:59 Intake Total 360 / 460 100 / 460 Balance 360 / 460 100 / 460 Weight 70.4 kg Intake: Oral 360 / 460 100 / 460 Other: # Unmeasured Voids 3 Weight Measurement Method Built in [facility] Vital Signs Temp Pulse Resp BP BP Pulse Ox O2 Del Method 04/27/25 07:57 36.9 C 75 16 110/73 95 Room Air 04/27/25 02:17 36.8 C 77 18 141/72 H 96 Room Air 04/26/25 22:45 37.0 C 82 18 132/71 96 Room Air Laboratory Results Laboratory Results WBC 6.08 K/ul (4.8-10.8) 04/26/25 05:38 RBC 4.64 M/uL (4.20-5.40) 04/26/25 05:38 Hgb 14.1 g/dL (12.0-16.0) 04/26/25 05:38 POC Hgb 13.3 g/dl (12.0-16.0) 04/26/25 14:28 Hct 41.0 % (37.0-47.0) 04/26/25 05:38 POC Hct 39 % (37-47) 04/26/25 14:28 MCV 88.4 fL (80.0-100.0) 04/26/25 05:38 MCH 30.4 pg (25.0-34.0) 04/26/25 05:38 MCHC 34.4 g/dL (32.0-36.0) 04/26/25 05:38 RDW Std Deviation 40.9 fL (36.4-46.3) 04/26/25 05:38 RDW Coeff of [place] 12.6 % (11.5-14.5) 04/26/25 05:38 Plt Count 217 K/uL (130-400) 04/26/25 05:38 MPV 10.5 fL (9.4-12.4) 04/26/25 05:38 Immature Gran % (Auto) 0.2 % 04/25/25 08:30 Neut % (Auto) 82.7 % 04/25/25 08:30 Lymph % (Auto) 8.8 % 04/25/25 08:30 [place] % (Auto) 6.7 % 04/25/25 08:30 Eos % (Auto) 1.1 % 04/25/25 08:30 Baso % (Auto) 0.5 % 04/25/25 08:30 Neut # (Auto) 8.96 K/uL (1.40-6.50) H 04/25/25 08:30 Lymph # (Auto) 0.95 K/uL (1.20-3.40) L 04/25/25 08:30 [place] # (Auto) 0.72 K/uL (0.11-0.59) H 04/25/25 08:30 Eos # (Auto) 0.12 K/uL (0.00-0.50) 04/25/25 08:30 Baso # (Auto) 0.05 K/uL (0.00-0.20) 04/25/25 08:30 Immature Gran # (Auto) 0.02 K/uL (0.01-0.20) 04/25/25 08:30 APTT 23 Seconds (21-31) 04/25/25 21:05 PTT Ratio 0.8 04/25/25 21:05 POC pH 7.37 (7.35-7.45) 04/26/25 14:28 POC pCO2 40 mmHg (35-46) 04/26/25 14:28 POC pO2 99 mmHg (80-95) H 04/26/25 14:28 POC HCO3 23 mmol/L (19-24) 04/26/25 14:28 POC Total CO2 24 mmol/L (24-31) 04/26/25 14:28 POC Base Excess -2.0 mmol/L (-9-1.8) 04/26/25 14:28 POC ABG O2 Sat 97.0 % (90-95) H 04/26/25 14:28 POC Sodium 140 mmol/L (135-144) 04/26/25 14:28 Sodium 139 mmol/L (136-145) 04/26/25 05:38 POC Potassium 3.7 mmol/L (3.3-5.0) 04/26/25 14:28 Potassium 4.9 mmol/L (3.5-5.1) 04/26/25 05:38 Chloride 105 mmol/L (98-107) 04/26/25 05:38 Carbon Dioxide 27 mmol/L (21-32) 04/26/25 05:38 Anion Gap 7 (3-11) 04/26/25 05:38 BUN 23 mg/dl (6-23) 04/26/25 05:38 Creatinine 1.24 mg/dl (0.6-1.2) H 04/26/25 05:38 Est Cr Clr Drug Dosing 36.8 ml/min 04/26/25 05:38 eGFR 45.67 04/26/25 05:38 BUN/Creatinine Ratio 18.5 (10-20) 04/26/25 05:38 Glucose 92 mg/dl (70-99(Fasting)) 04/26/25 05:38 Estimat Average Glucose 100 mg/dl 04/26/25 05:38 Hemoglobin A1c 5.1 % (4.5-5.6) 04/26/25 05:38 Calcium 9.8 mg/dl (8.6-10.3) 04/26/25 05:38 Phosphorus 2.6 mg/dl (2.5-4.9) 04/26/25 05:38 Magnesium 2.1 mg/dl (1.7-2.4) 04/26/25 05:38 Total Bilirubin 0.6 mg/dl (0.2-1.0) 04/25/25 08:30 AST 26 U/L (13-39) 04/25/25 09:30 ALT 17 U/L (7-52) 04/25/25 08:30 Alkaline Phosphatase 92 U/L (34-104) 04/25/25 08:30 Troponin I High Sens 248.7 pg/ml (0-14) H* 04/25/25 21:05 Total Protein 6.8 gm/dl (6.0-8.3) 04/25/25 08:30 Albumin 4.2 gm/dl (3.4-5.0) 04/25/25 08:30 Globulin 2.6 gm/dl (2.5-4.0) 04/25/25 08:30 Albumin/Globulin Ratio 1.6 (0.9-2) 04/25/25 08:30 Triglycerides 53 mg/dl (0-150) 04/26/25 05:38 Cholesterol 196 mg/dl (0-200) 04/26/25 05:38 LDL Cholesterol, Calc 116 mg/dl 04/26/25 05:38 VLDL Cholesterol, Calc 11 mg/dl (0-30) 04/26/25 05:38 HDL Cholesterol 69 mg/dl 04/26/25 05:38 Cholesterol/HDL Ratio 2.8 (0-5) 04/26/25 05:38 Lipase 20 U/L (11-82) 04/25/25 08:30 TSH 1.631 uIu/ml (0.300-4.500) 04/26/25 05:38 Adenovirus (PCR) Not Detected (NotDetected) 04/25/25 13:30 B. pertussis DNA (PCR) Not Detected (NotDetected) 04/25/25 13:30 B.parapertussis DNA PCR Not Detected (NotDetected) 04/25/25 13:30 C. pneumoniae DNA (PCR) Not Detected (NotDetected) 04/25/25 13:30 Coronavirus OC43 (PCR) Not Detected (NotDetected) 04/25/25 13:30 Coronavirus HKU1 (PCR) Not Detected (NotDetected) 04/25/25 13:30 Coronavirus 229E (PCR) Not Detected (NotDetected) 04/25/25 13:30 SARS-CoV-2 (PCR) Not Detected (NotDetected) 04/25/25 13:30 Coronavirus NL63 (PCR) Not Detected (NotDetected) 04/25/25 13:30 Human Metapneumovir PCR Not Detected (NotDetected) 04/25/25 13:30 Influenza Type A (PCR) Not Detected (NotDetected) 04/25/25 13:30 Influenza Type B (PCR) Not Detected (NotDetected) 04/25/25 13:30 M. pneumoniae (PCR) Not Detected (NotDetected) 04/25/25 13:30 Parainfluenza 1 (PCR) Not Detected (NotDetected) 04/25/25 13:30 Parainfluenza 2 (PCR) Not Detected (NotDetected) 04/25/25 13:30 Parainfluenza 3 (PCR) Not Detected (NotDetected) 04/25/25 13:30 Parainfluenza 4 (PCR) Not Detected (NotDetected) 04/25/25 13:30 RSV (PCR) Not Detected (NotDetected) 04/25/25 13:30 Entero/Rhino (PCR) Not Detected (NotDetected) 04/25/25 13:30 Impressions Chest X-Ray 04/25/25 08:41 SINGLE VIEW CHEST CLINICAL HISTORY: Chest pain FINDINGS: 2 AP, portable, upright chest radiographs compared to to study dated 08/15/2021. The heart is mildly enlarged. The pulmonary vasculature is noncongested. Chronic interstitial thickening is similar to previous. There is bibasilar scarring/atelectasis. No airspace consolidation or large pleural effusion is identified. No pneumothorax is seen. The skeletal structures are osteopenic. The bony thorax is grossly intact. IMPRESSION: No acute cardiopulmonary abnormality is identified. ACT 112: Negative or not required by law. Electronically signed by: Mayo Key M.D. 04/25/2025 9:00 AM Diagnostic Findings Intake and Output 04/26/25 04/27/25 04/27/25 22:59 06:59 14:59 Intake Total 100 / 460 Balance 100 / 460 Intake: Oral 100 / 460 Other: Weight 70.4 kg Weight Measurement Method Built in [facility] 04/25/25 ECHO Interpretation Summary Left ventricular systolic function is normal. Left Ventricular Ejection Fraction = 60-65%. A full diastolic examination was done with clinical findings of Class I diastolic dysfunction. Mild aortic regurgitation. There is moderate to severe mitral regurgitation. There is mild tricuspid regurgitation. Small pericardial effusion. There are no echocardiographic indications of cardiac tamponade. 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 Cardiac Status Clinical evaluation leading to the procedure CAD Presenation: Non STEMI Diagnostic Physicians Name: Piotr Wilkinson MD Closure Device Recommendations: Medical Therapy and/or Counseling Cardiac Cath Procedure Full Procedure Date April 26, 2025 Pre-Procedure Diagnosis Pre-Procedure Diagnosis: Non STEMI and Valvular Disease AUC Score AUC Score: 7 Post-Procedure Diagnosis Post-Procedure Diagnosis: Mild CAD Procedure(s) Performed Procedure(s) Performed: Coronary Angiography, Left Heart Cath, Right Heart Cath and Ultrasound Guided Vascular Access Completions Engineer Piotr Wilkinson MD Preparatory Technician(s) Laura Estimated Blood Loss Estimated Blood Loss: 25 Medication(s) Medication(s): Fentanyl, Heparin, Lidocaine 1%, Nicardipine, Nitroglycerin and Versed Summary of Findings Indication: NSTEMI, mitral regurgitation Access: 6 Fr right antecubital vein, 6 Fr right radial artery, 6 Fr left radial artery Catheters: [place], 6 Fr [place] Procedure: Large bore right antecubital IV was exchanged for 6 Fr sheath. 6 Fr [place] navigated under fluoroscopy into PA 6 Fr sheath placed to right radial artery. Tortuosity/spasm/PAD and radial/brachial artery most notable at the elbow. Unable to pass Glidewire, V18, whisper 0.14 wire across disease/tortuous segment. Under ultrasound guidance 6 Fr sheath placed to left radial artery. Also noted to have some spasm/tortuosity at radial/brachial junction. Eventually able to cross with 0.14 [place] blue wire. 4 Fr catheters navigated to ascending aorta for coronary angiography Findings: LM -normal caliber, no significant disease LAD -proximal vessel medium caliber gives off 2 medium diagonals without significant disease. Latemid/distal LAD very small, tortuous and tapers prior to apex. Circumflex -small caliber, no significant disease. Gives off 2 small OM's without disease. RCA -dominant, large caliber, no significant disease. Right posterior AV branch, PDA without significant disease. RA 1 RV 17/1 PA 19/3 (10) PAWP 5 (no significant V wave) LV 9 PaSat 69% AoSat 97% [place] CO/CI 4.9/2.8 Thermo CO/CI 3.4/2.0 Arterial Closure: TR band Summary: 1. Angiographically normal coronary arteries 2. Normal left and right sided filling pressures 3. Normal pulmonary artery pressures 4. Normal cardiac output Medications Administered Home Medications Medication Instructions Recorded Confirmed Last Taken cyclosporine 0.05 % eye drops in a 1 drp OPB BID 08/15/21 04/25/25 08/14/21 dropperette (Restasis) magnesium oxide 400 mg (241.3 mg 400 mg PO QAM #30 tabs 08/16/21 04/25/25 Unknown magnesium) tablet PG Care Time/CCT Total # of Minutes Spent Total Time Spent with Patient: Total time spent is greater than 50% in coordination of care (as documented) at patient's floor/unit and/or counseling patient: Coding Level of Care Code 55818 SUB INP/OBS CARE 3/50MIN Diagnoses Palpitations R00.2 H/O supraventricular tachycardia Z86.79 Elevated troponin R79.89 Mitral regurgitation I34.0
--- NOTE | 2025-04-27 10:45 | Discharge Summary ---
Discharge Summary Date of Service April 27, 2025 Principal Dx & Hospital Course #1 = Principal Diagnosis (1) Palpitations: Plan 74F with PMH SVT who presents with palpitations x 1 hour at home. She was in NSR in the ED. Cardio was consulted and TTE was performed. TTE with normal EF but with severe MR which is new. S/p LHC and RHC yesterday. Clean coronaries. She is feeling well today without complaints. cardio cleared for discharge. Cardio recommending OP f/u in their office for possible GT. vitals and labs are stable for discharge. Cardio recommending initiating daily ASA. #Palpitations -Likely SVT -TSH normal -Currently in NSR -Cardio following -Troponin elevation likely type II nstemi/demand ischemia from tachycardia -No chest pain or EKG changes -TTE showing new severe mitral regurgitation, small pericardial effusion I spent a total of 38 minutes coordinating, documenting, and providing care for this patient excluding time spent in the performance of separately billed services. This included personally reviewing all current laboratories and imaging studies, medical reconciliation, outpatient chart review and discussion with specialists Notes For Next Care Provider Medication Changes From Visit ASA added Admission HPI Per Admitting Provider 74-year-old lady with PMH of SVT, dry eyes presents to the ED with complaint of palpitation that took 1 hour to recover. Patient called EMS and by the time EMS came in her palpitation has improved but her SBP was in 80s and hence she was referred to the ED. Patient reports that she was admitted for SVT in 2021 and has had multiple SVTs since then which generally resolves with maneuvers she has been taught within 1 to 2-minute but this time it took her about 1 hour, she did laying down/bearing down and finally dunked her face into the ice bucket with helped resolve her symptoms. Patient reports she has been feeling slightly sick since about a day with some sore throat, maybe mild fever, congested nose/face and sneezing. Will get resp biofire. She was on a treadmill and slowly increasing her intensity when she started feeling palpitation. Patient does report some nausea and lightheadedness with the event. patient denies any chest pain or shortness of breath. At bedside exam, patient denies any nausea or vomiting, patient reports no acute changes in her bowel or bladder or appetite. Patient denies smoking/alcohol/illicit drug use. Patient reports taking eyedrops at home, denies any other medications at home. Plan of care discussed with the patient in detail, she was understanding. Full code Discharge Exam Vitals and labs reviewed General: Well appearing, NAD HEENT: EOMI, PERRLA Neck: Supple Cardiac: RRR no rubs gallops or murmurs Lungs: CTA no rhonchi wheezing or rales Abd: S NT ND BS positive : Deffered MSK: Full ROM. No obvious deformities Ext: No Edema cyanosis Skin: Warm, Dry Neuro: AOx3 No focal deficits. Psych: Normal Mood Updated Medication List Medication Instructions Recorded Confirmed Type cyclosporine 0.05 % eye drops in a 1 drp OPB BID 08/15/21 04/25/25 History dropperette (Restasis) magnesium oxide 400 mg (241.3 mg 400 mg PO QAM #30 tabs 08/16/21 04/25/25 Rx magnesium) tablet Hospital Stay Data Consultations 04/25/25 11:49 ED Decision to Admit Stat 04/25/25 12:10 Consult Cardiology Routine Procedures Performed Operation Date: 04/26/25 12:00 Actual Procedures p Cineradiography w/Routine Exam - Piotr Wilkinson MD p Cath, Right and Left Heart - Piotr Wilkinson MD Diagnostic Imagining Performed 04/26/25 12:50 CL Cath Imgs for PACS use only Routine Pending Results Patient Have Any Pending Studies at Discharge: No Discharge Instructions Given to Patient (Per Discharging Provider) Please follow up with [facility] cardiology as outpatient. Total Time Total Time Spent Total Time Spent (In Minutes): 38
[2025-04-27 10:47] VITALS: PULSE 74
== END 2025-04-27 11:34 | disposition home or self-care (01) | DRG 287 ==
LOC: ED 08:19 → SUATTDRO 12:11 → 4W 12:11